=== PATIENT | male | born 1945 | race Caucasian/White ===

== ENCOUNTER 2022-06-03 10:13 | Observation (INO) | payer OTHER ==
--- OUTSIDE RECORDS SUMMARY | 2022-06-03 10:23 | XMS REPORT | Continuity of Care Document ---
:1945 Author Organization [facility] t Address [address] [place] [address] Care Team Providers Name Role Phone Dario Wade MD Primary Care Physician Barak Ibarra MD Attending Clinician Marietta Rahman MD Attending Clinician Chilo Casey MD Attending Clinician Jose Jennings MD Attending Clinician [phone] Anjel Otoole Attending Clinician Unavailable Lee Saldaña Attending Clinician Unavailable MONICA VALENTINE Attending Clinician Unavailable Lissette Ashford Attending Clinician Chepe Hooker Attending Clinician JOSE UREÑA, PShonda Attending Clinician Unavailable Siddhartha Anne Attending Clinician MARIETTA RAHMAN Admitting Clinician Unavailable Physician, No Primary or Family Admitting Clinician UnavailChepe Gutiérrez Admitting Clinician Siddhartha Anne Admitting Clinician Payers Payer Name Policy Type Policy Number Effective Date Expiration Date S ource Problems Condition Condition Condition Status Onset Resolution Last Treating Co mments Source Name Details Category Date Date Treatment Clinician Date Intractabl Intractabl Disease Active M ethodi e headache e headache -13 [facility] 00:00: Hospita 00 l PERIPHERAL PERIPHERA Diagnosis Active 2015-082016-08-28 Memoria VASCULAR L VASCULAR 09-11 07:19:00 l DISEASE, DISEASE, 00:00: Mansoor n Active 07/12/2016 [facility] PERIPHERAL Diagnosis Active 2015-082016-06-27 Memoria ARTERIAL PERIPHERAL 08-27 11:45:00 l DISEASE ARTERIAL 00:00: Wei DISEASE 00 Active 06/27/2016 [facility] KNEE KNEE Diagnosis Active 2016-10-31 Mem oria OSTEOARTHR OSTEOARTHR 02-14 18:57:00 l ITIS ITIS 00:00: Wei Active 02/15/2016 [facility] History of History of Problem Resolve [place] backache backache d Physic i ans History of History of Problem Resolve [place] blood blood d Physici clots clots ans History of History of Problem Resolve [place] CAD CAD d Physici (coronary (coronary ans artery artery disease) disease) Cardiac Cardiac Problem Active 2016-08-31 Oh moria monitoring monitoring 01:39:15 l (regime/th (regime/th He [facility] erapy) erapy) Active Problem 08/31/2016 implanted loop monitor [facility] [place] Gastroesop Gastroeso Problem Active 2016-08-31 Memoria hageal phageal 01:39:15 l reflux reflux Wei disease disease (disorder) (disorder) Active Problem 08/31/2016 [facility] [place] Hypertensi Hypertens Problem Active 2016-08-31 Memoria ve vic 01:39:15 l disorder, disorder, Herm errol systemic systemic arterial arterial (disorder) (disorder) Active Problem 08/31/2016 [facility] [place] Malignant Malignant Problem Active 2016-08-31 Memoria melanoma melanoma 01:39:15 l (disorder) (disorder) He rmann Active Problem 08/31/2016 [facility] [place] Osteoarthr Osteoarth Problem Active 2016-08-31 Memoria itis ritis 01:39:15 l (disorder) (disorder) He rmann Active Problem 08/31/2016 [facility] Outpatient Imaging [facility] Pulmonary Pulmonary Problem Active 2016-08-31 Memoria embolism embolism 01:39:15 l (disorder) (disorder) He rmann Active Problem 08/31/2016 4ys ago after being off warfarin for 1yr. [facility] Outpatient Imaging [facility] Sleep Sleep Problem Active 2016-08-31 Memor ia apnea apnea 01:39:15 l (finding) (finding) Herm errol Active Problem 08/31/2016 [facility] Outpatient Imaging [facility] OSTEOARTHR OSTEOARTH Diagnosis Active 2016-10-31 Memoria ITIS OF RITIS OF 18:57:00 l KNEE, KNEE, Wei UNSPECIFIE UNSPECIFIE D D Active [facility] PERIPHERAL PERIPHERA Diagnosis Active 2016-08-28 Memoria VASCULAR L VASCULAR 07:19:00 l DISEASE, DISEASE, Mansoor n UNSPECIFIE UNSPECIFIE D D Active [facility] Amnesia Amnesia Problem Resolve 2016-08-31 M emoria (finding) (finding) d 01:39:15 l Resolved Wei Problem 08/31/2016 episode of memory loss 1yr ago, saw neurologis t and all tests were normal. He has follow up on 03-27-16. [facility] History of History of Problem Resolve UT Extremity Extremity d Phys ici pain pain ans History of History of Problem Resolve UT Heart Heart d Physici valve valve ans malfunctio malfunctio n n History of History of Problem Resolve UT High High d Physici cholestero cholestero an s l l History of History of Problem Resolve UT hypertensi hypertensi d Ph ysici on on ans History of History of Problem Resolve UT Leg Leg d Physici swelling swelling ans History of History of Problem Resolve UT shortness shortness d Phys ici of breath of breath ans Atheroscle Atheroscle Problem Active U T rosis of rosis of Physic i [place] ans artery of artery of other other extremity extremity with rest with rest pain pain Aortobifem Aortobifem Problem Active U T oral oral Physici bypass bypass ans graft graft thrombosis thrombosis PAD PAD Problem Active UT (periphera (periphera Ph ysici l artery l artery ans disease) disease) Allergies, Adverse Reactions, Alerts Allergy Allergy Status Severity Reaction(s) Onset Inactive Treating Comm ents Source Name Type Date Date Clinician No Known DA Active U 2020- [facility] [place] 00[facility] 00 [facility] No Known DA Active U 2020-1 [facility] All[facility]ie 0-22 [place] 00:[place] [facility] 00 [facility] No Known DA Active U 2020-0 [facility]ie 8-12 [place] 00:[place]: Region [facility] No Known DA Active U 2020-0 [facility] Allergie 8-12 [place] 00:[facility] [facility] 00 [facility] Family History Family Member Diagnosis Comments Start Date Stop Date Source Natural father No Known Problems Met [facility] Natural mother Heart disease [facility] Social History Social Habit Start Date Stop Date Quantity Comments Source Alcohol Comment 2021-11-23 2021-11-23 minimal Confucianist 00:00:00 00:00:00 Hospital Alcohol intake 2021-11-23 2021-11-23 Current drinker [facility] 00:00:00 00:00:00 of alcohol Hospital (finding) Tobacco use and 2020-03-22 2020-03-22 Smokeless tobacco Me thodist exposure 00:00:00 00:00:00 non-user Hospital Social History 2016-03-14 2016-03-14 [facility] 23:29:25 23:29:25 History of 2003-03-[address] [facility] tobacco use 00:00:00 [facility] Sex Ass[birth year] At [birth year] Confucianist 00:00:00 00:00:00 Hospital Smoking Status Start Date Stop Date Source Ex-smoker 2020-03-22 00:00:00 2020-03-22 [facility]00:[facility]ations Ordered Filled Start Stop Current Ordering Indication Dosage Frequency Signature Comments Components Source Medication Medication Date Date Medication? Clinician (SIG) Name Name rosuvastati Yes 20mg QD Take 20 mg Methodi n (CRESTOR) 4-[address] 20 mg 16:18: daily. Hospita tablet 05 l sucralfate Yes 1g Q.25D Take 1 g Me thodi (CARAFATE) 4-[address] 1 gram 16:18: (four) Hospita tablet 05 times a l day. aspirin 2022-0 Yes 81mg QD Take 81 mg Meth josesito (ECOTRIN) 4-[address] 81 MG 16:19: daily. Hospita enteric 01 l coated tablet Xarelto 20 Yes 20mg QD Take 20 mg M ethodi mg tablet 3-[address] 00:00: daily. Hospita 00 l aspirin 2020-0 Yes 81mg QD Take 81 mg Meth josesito (ECOTRIN) 8-[address] 81 MG 15:45: daily. Hospita enteric 35 l coated tablet predniSONE 2020-0 Yes Methodi (DELTASONE) 8-05 st 20 mg 00:00: Hospita tablet 00 l predniSONE 2020-0 Yes Methodi (DELTASONE) 8-05 st 20 mg 00:00: Hospita tablet 00 l atorvastati 2019-0 Yes Method i n (LIPITOR) 7 st 20 mg 00:00: Hospita tablet 00 l metoprolol 2020-0 Yes Methodi succinate 03-04 st XL 00:00: Hospita (TOPROL-XL) 00 l 25 mg 24 hr tablet metoprolol 0 Yes Methodi succinate 03-04 st XL 00:00: Hospita (TOPROL-XL) 00 l 25 mg 24 hr tablet atorvastati 2019-0 2021- No Metho di n (LIPITOR) 03-04 04-13 st 20 mg 00:00: 00:00 Hospita tablet 00 :00 l traMADoL 2020-0 Yes Methodi (ULTRAM) 50 5-11 st mg tablet 00:00: Hospita 00 l traMADoL 2020-0 Yes Methodi (ULTRAM) 50 5-11 st mg tablet 00:00: Hospita 00 l chlorhexidi No Notes: Dustin lele ne 18 (Same As: l gluconate 15:00: Hibiclens) He rmann 40 MG/ML Medicated Liquid Soap chlorhexidi No Notes: Dustin lele ne -18 (Same As: l gluconate 15:00: Hibiclens) He rmann 40 MG/ML Medicated Liquid Soap metoprolol No 25 mg, Memor ia tartrate 08-29 Route: PO, l 15:00: Drug form: Wei 00 TAB, Daily, Dosing Weight 76.818, kg, Start date: 08/29/16 9:00:00 YARD DRIVER, Duration: 30 day, Stop date: 09/27/16 9:00:00 YARD DRIVER Lovenox 2016-0 No 80 mg, Memoria 08-29 Route: l 15:00: SUB-Q, Wei 00 Drug form: INJ, [id number], Dosing Weight 76.818, kg, Start date: 08/29/16 9:00:00 YARD DRIVER, Duration: 30 day, Stop date: 09/27/16 21:00:00 YARD DRIVER Vitamin B12 2016-0 No 250 Memori a 1-17 microgram, l 15:00: Route: PO, Mobile 00 Drug form: TAB, Daily, Dosing Weight 76.818, kg, Start date: 08/29/16 9:00:00 YARD DRIVER, Duration: 30 day, Stop date: 09/27/16 9:00:00 YARD DRIVER Warfarin 2016-0 No 5 mg, Memoria 08-29 Route: PO, l 15:00: Drug form: Mobile TAB, Daily, Dosing Weight 76.818, kg, Start date: 08/29/16 9:00:00 YARD DRIVER, Duration: 30 day, Stop date: 09/27/16 9:00:00 YARD DRIVER multivitami 2016-0 No Notes: Dustin lele n 17 (Same l 15:00: as:Thera) WASTE: F/P - Black; E - Municipal Trash Bin Take with food. aspirin 81 2017-0 No 81 mg, 1 Mem oria mg tablet, 17 tab, l enteric 15:00: Route: PO, Herm errol coated Drug form: ECTAB, Daily, Dosing Weight 76.818, kg, Start date: 08/29/16 9:00:00 YARD DRIVER, Duration: 30 day, Stop date: 09/27/16 9:00:00 YARD DRIVER metoprolol 2016-0 No 25 mg, Memor ia tartrate 08-29 Route: PO, l 15:00: Drug form: Mobile 00 TAB, Daily, Dosing Weight 76.818, kg, Start date: 08/29/16 9:00:00 YARD DRIVER, Duration: 30 day, Stop date: 09/27/16 9:00:00 YARD DRIVER Lovenox 2017-0 No 80 mg, Memoria 08-29 Route: l 15:00: SUB-Q, Wei 00 Drug form: INJ, [id number], Dosing Weight 76.818, kg, Start date: 08/29/16 9:00:00 YARD DRIVER, Duration: 30 day, Stop date: 09/27/16 21:00:00 YARD DRIVER Vitamin B12 2017-0 No 250 Memori a 1-17 microgram, l 15:00: Route: PO, Wei 00 Drug form: TAB, Daily, Dosing Weight 76.818, kg, Start date: 08/29/16 9:00:00 YARD DRIVER, Duration: 30 day, Stop date: 09/27/16 9:00:00 YARD DRIVER Warfarin 2017-0 No 5 mg, Memoria 1-17 Route: PO, l 15:00: Drug form: Wei 00 TAB, Daily, Dosing Weight 76.818, kg, Start date: 08/29/16 9:00:00 YARD DRIVER, Duration: 30 day, Stop date: 09/27/16 9:00:00 YARD DRIVER multivitami 2016-0 No Notes: Dustin lele n 1-17 (Same l 15:00: as:Thera) WASTE: F/P - Black; E - Municipal Trash Bin Take with food. aspirin 81 2017-0 No 81 mg, 1 Mem oria mg tablet, 1-17 tab, l enteric 15:00: Route: PO, Herm errol coated 00 Drug form: ECTAB, Daily, Dosing Weight 76.818, kg, Start date: 08/29/16 9:00:00 YARD DRIVER, Duration: 30 day, Stop date: 09/27/16 9:00:00 YARD DRIVER gabapentin 2017-0 No 300 mg, 1 Me moria 300 MG Oral 1-16 cap, l Capsule 19:00: Route: PO, Herm errol Drug form: CAP, TID, Dosing Weight 76.818, kg, Start date: 08/28/16 13:00:00 YARD DRIVER, Duration: 30 day, Stop date: 09/27/16 9:00:00 YARD DRIVER gabapentin 2017-0 No 300 mg, 1 Me moria 300 MG Oral 1-16 cap, l Capsule 19:00: Route: PO, Herm errol Drug form: CAP, TID, Dosing Weight 76.818, kg, Start date: 08/28/16 13:00:00 YARD DRIVER, Duration: 30 day, Stop date: 09/27/16 9:00:00 YARD DRIVER Famotidine No 20 mg, Memor ia 1-16 Route: PO, l 16:33: Drug form: Mobile 00 TAB, PRN, Dosing Weight 76.818, kg, PRN, Start date: 08/28/16 10:33:00 YARD DRIVER, Duration: 30 day, Stop date: 09/27/16 10:32:00 YARD DRIVER, none 200 ACTUAT 2017-0 No 180 Memoria Albuterol 1-16 microgram, l 0.09 16:33: 2 puff, Mobile MG/ACTUAT 00 Route: Metered INHALATION Dose , Drug Inhaler Form: AERO/A, Dosing Weight 76.818, kg, PRN, PRN as needed for wheezing, Start date: 08/28/16 10:33:00 YARD DRIVER, Duration: 30 day, Stop date: 09/27/16 10:32:00 YARD DRIVER Famotidine No 20 mg, Memor ia 1-16 Route: PO, l 16:33: Drug form: Mobile 00 TAB, PRN, Dosing Weight 76.818, kg, PRN, Start date: 08/28/16 10:33:00 YARD DRIVER, Duration: 30 day, Stop date: 09/27/16 10:32:00 YARD DRIVER, none 200 ACTUAT [id number] No 180 Memoria Albuterol 1-16 microgram, l 0.09 16:33: 2 puff, Mobile MG/ACTUAT 00 Route: Metered INHALATION Dose , Drug Inhaler Form: AERO/A, Dosing Weight 76.818, kg, PRN, PRN as needed for wheezing, Start date: 08/28/16 10:33:00 YARD DRIVER, Duration: 30 day, Stop date: 09/27/16 10:32:00 YARD DRIVER Morphine No Notes: Memoria -16 (Same l 16:30: as:MORPhin Mobile 00 e Sulfate) Acetaminoph No Notes: Dustin lele en 325 MG / -16 (Same as: l Hydrocodone 16:30: [place] Tierney nn Bitartrate 00 325/5) Do 5 MG Oral not exceed Tablet 4gm/day of acetaminop hen. Ondansetron No Notes: Dustin lele 1-16 (Same as: l 16:30: Zofran) Mobile 00 MEDICATION WASTE Product Size: 4 mg Product Wasted: ___ mg Docusate No Notes: Memoria 1-16 (Same as: l 16:30: Colace) Mobile 00 (Do Not Crush) Morphine No Notes: Memoria 1-16 (Same l 16:30: as:MORPhin Mobile 00 e Sulfate) Acetaminoph No Notes: Dustin lele en 325 MG / 08-28 (Same as: l Hydrocodone 16:30: [place] Tierney nn Bitartrate 00 325/5) Do 5 MG Oral not exceed Tablet 4gm/day of acetaminop hen. Ondansetron No Notes: Dustin lele 1-16 (Same as: l 16:30: Zofran) Wei 00 MEDICATION WASTE Product Size: 4 mg Product Wasted: ___ mg Docusate No Notes: Memoria 1-16 (Same as: l 16:30: Colace) Mobile 00 (Do Not Crush) Ondansetron No Notes: Dustin lele 1-16 (Same as: l 15:29: Zofran) Mobile 00 MEDICATION WASTE Product Size: 4 mg Product Wasted: ___ mg Fentanyl No Notes: Memoria 1-16 (Same as: l 15:29: Sublimaze) Wei 00 Preservati ve free. Naloxone No Notes: Memoria 1-16 Same as l 15:29: Narcan Wei 00 Flumazenil No Notes: Memor ia 1-16 (Same as: l 15:29: Romazicon) Mobile Ondansetron No Notes: Dustin lele 1-16 (Same as: l 15:29: Zofran) Mobile 00 MEDICATION WASTE Product Size: 4 mg Product Wasted: ___ mg Fentanyl No Notes: Memoria 1-16 (Same as: l 15:29: Sublimaze) Mobile 00 Preservati ve free. Naloxone No Notes: Memoria 1-16 Same as l 15:29: Narcan Mobile 00 Flumazenil No Notes: Memor ia -16 (Same as: l 15:29: Romazicon) cephalexin 2016-0 Yes 500 mg = 1 M emoria 500 mg oral 1-16 cap, PO, l capsule 15:18: QID, 0 Refill(s) esmolol No Route: IV, Dustin lele (ANES) 08-28 Drug form: l 15:18: INJ, ONCE, Stop date: 08/28/16 9:18:00 YARD DRIVER cephalexin Yes 500 mg = 1 M emoria 500 mg oral -16 cap, PO, l capsule 15:18: QID, 0 Refill(s) esmolol No Route: IV, Dustin lele (ANES) 08-28 Drug form: l 15:18: INJ, ONCE, Stop date: 08/28/16 9:18:00 YARD DRIVER ceFAZolin 2016-0 No Route: IV, Me moria (ANES) 08-28 Drug form: l 15:13: INJ, ONCE, Stop date: 08/28/16 9:13:00 YARD DRIVER fentaNYL 2017-0 No Route: IV, Mem oria (ANES) 08-28 Drug form: l 15:13: INJ, ONCE, Stop date: 08/28/16 9:13:00 YARD DRIVER midazolam 2017-0 No Route: IV, Me moria (ANES) 16 Drug form: l 15:13: SOLN, Mobile 00 ONCE, Stop date: 08/28/16 9:13:00 YARD DRIVER ceFAZolin 2016-0 No Route: IV, Me moria (ANES) 16 Drug form: l 15:13: INJ, ONCE, Stop date: 08/28/16 9:13:00 YARD DRIVER fentaNYL 2017-0 No Route: IV, Mem oria (ANES) -16 Drug form: l 15:13: INJ, ONCE, Stop date: 08/28/16 9:13:00 YARD DRIVER midazolam 2017-0 No Route: IV, Me moria (ANES) 16 Drug form: l 15:13: SOLN, Mobile 00 ONCE, Stop date: 08/28/16 9:13:00 YARD DRIVER acetaminoph 2017-0 No Route: IV, Memoria en (ANES) 1-16 Drug form: l (ANES) 14:44: INJ, Start Tierney nn date: 08/28/16 8:44:00 YARD DRIVER, Stop date: 08/28/16 9:44:00 YARD DRIVER acetaminoph 2016-0 No Route: IV, Memoria en (ANES) 1-16 Drug form: l (ANES) 14:44: INJ, Start Tierney nn date: 08/28/16 8:44:00 YARD DRIVER, Stop date: 08/28/16 9:44:00 YARD DRIVER sodium 2017-0 No Route: IV, Memor ia chloride 1-16 Total l 0.9% 1000 14:37: Volume: Tierney nn ml INJ 00 1,000, (ANES) Start date: 08/28/16 8:37:00 YARD DRIVER, Stop date: 08/28/16 9:37:00 YARD DRIVER sodium 2017-0 No Route: IV, Memor ia chloride 1-16 Total l 0.9% 1000 14:37: Volume: Tierney nn ml INJ 00 1,000, (ANES) Start date: 08/28/16 8:37:00 YARD DRIVER, Stop date: 08/28/16 9:37:00 YARD DRIVER dexamethaso 2015-0 No Notes: Memoria ne 8-24 MEDICATION l 16:12: WASTE Mobile 00 Product Size: 10 mg Product Wasted: ___ mg dexamethaso 2015-0 No Notes: Memoria ne 8-24 MEDICATION l 16:12: WASTE Wei 00 Product Size: 10 mg Product Wasted: ___ mg Warfarin 2015-0 No Notes: Rosey 04-05 Nurse to l 14:30: ensure Mobile 00 documentat ion of patient education per anticoagul ation policy. Avoid large intake of vitamin-K containing foods diet. WASTE: F/P - P Waste Black; E - P Waste Black (Same As: Coumadin) Warfarin No Notes: Rosey 04-05 Nurse to l 14:30: ensure Wei 00 documentat ion of patient education per anticoagul ation policy. Avoid large intake of vitamin-K containing foods diet. WASTE: F/P - P Waste Black; E - P Waste Black (Same As: Coumadin) 24 HR No Notes: Memoria Metoprolol 8-24 (Same as: l Tartrate 25 14:00: Toprol XL) Wei MG Extended 00 Do Not Release Crush Tablet [Toprol] sennosides, No Notes: Dustin lele RESIDENTIAL 8-24 (Same as: l 14:00: Senokot) Mobile 00 POLYETHYLEN No Notes: Dustin lele E GLYCOL 8-24 Dissolve l 3350 14:00: in 8 oz of Mobile 00 water or juice. (Same as: Miralax) Enoxaparin No Notes: Memor ia 8-24 (Same as: l 14:00: Lovenox) Wei 00 24 HR No Notes: Memoria Metoprolol 8-24 (Same as: l Tartrate 25 14:00: Toprol XL) Mobile MG Extended 00 Do Not Release Crush Tablet [Toprol] sennosides, No Notes: Dustin lele RESIDENTIAL 8-24 (Same as: l 14:00: Senokot) Mobile 00 POLYETHYLEN No Notes: Dustin lele E GLYCOL 8-24 Dissolve l 3350 14:00: in 8 oz of Wei 00 water or juice. (Same as: Miralax) Enoxaparin No Notes: Memor ia 8-24 (Same as: l 14:00: Lovenox) Mobile 00 pantoprazol No Notes: Dustin lele e 8-24 Tablet l 13:00: should not Mobile 00 be chewed or crushed. (Same as: Protonix) pantoprazol No Notes: Dustin lele e 8-24 Tablet l 13:00: should not Wei 00 be chewed or crushed. (Same as: Protonix) Acetaminoph Yes 1-2 tab, Me moria en 325 MG / 8-24 PO, Q4-6H, l Hydrocodone 12:41: PRN Pain, H ermann Bitartrate 00 # 120 tab, 10 MG Oral 0 Tablet Refill(s) [[place] 10/325] Acetaminoph Yes 1-2 tab, Me moria en 325 MG / 8-24 PO, Q4-6H, l Hydrocodone 12:41: PRN Pain, H ermann Bitartrate 00 # 120 tab, 10 MG Oral 0 Tablet Refill(s) [[place] 10/325] 0.3 ML Yes 30 mg, Memoria Enoxaparin 8-24 SUB-Q, l sodium 100 12:35: Q12H, X 10 H ermann MG/ML day, # 20 Prefilled syr, 0 Syringe Refill(s) [Lovenox] Phenergan Yes 12.5 mg = Mem oria 12.5 mg 8-24 1 tab, PO, l oral tablet 12:35: Q4H, PRN He rmann 00 Nausea & Vomiting, # 40 tab, 0 Refill(s) gabapentin Yes 300 mg = 1 M emoria 300 MG Oral 8-24 cap, PO, l Capsule 12:35: TID, Day Mansoor n 00 1: 1 cap daily; Day 2: 1 cap BID, Day 3 and later: 1 cap TID, # 42 cap, 0 Refill(s) 0.3 ML Yes 30 mg, Memoria Enoxaparin 8-24 SUB-Q, l sodium 100 12:35: Q12H, X 10 H ermann MG/ML day, # 20 Prefilled syr, 0 Syringe Refill(s) [Lovenox] Phenergan Yes 12.5 mg = Mem oria 12.5 mg 8-24 1 tab, PO, l oral tablet 12:35: Q4H, PRN He rmann Nausea & Vomiting, # 40 tab, 0 Refill(s) gabapentin Yes 300 mg = 1 M emoria 300 MG Oral 8-24 cap, PO, l Capsule 12:35: TID, Day Mansoor n 00 1: 1 cap daily; Day 2: 1 cap BID, Day 3 and later: 1 cap TID, # 42 cap, 0 Refill(s) Ondansetron No Notes: Dustin lele 8-24 (Same as: l 05:00: Zofran) MEDICATION WASTE Product Size: 4 mg Product Wasted: ___ mg Ondansetron No Notes: Dustin lele 8-24 (Same as: l 05:00: Zofran) Wei 00 MEDICATION WASTE Product Size: 4 mg Product Wasted: ___ mg Vancomycin No 2000 mg: Me moria 6.67 MG/ML 8-24 infuse l Injectable 02:00: over 2.5 Her high Solution 00 hours Mupirocin No 1 appl, Memor ia 8-24 Route: l 02:00: NASAL, Mobile 00 Q12H, Drug form: OINT, Start date: 04/04/16 21:00:00 CDT, Duration: 30 day, Stop date: 05/04/16 9:00:00 CDT Vancomycin No 2000 mg: Me moria 6.67 MG/ML 8-24 infuse l Injectable 02:00: over 2.5 Her high Solution 00 hours Mupirocin No 1 appl, Memor ia 8-24 Route: l 02:00: NASAL, Mobile 00 Q12H, Drug form: OINT, Start date: 04/04/16 21:00:00 CDT, Duration: 30 day, Stop date: 05/04/16 9:00:00 CDT Celebrex No Notes: Memoria 8-23 NSAID. l 22:00: Please Wei 00 check indication . Not for seizure. (Same As: CeleBREX) Docusate No Notes: Memoria Sodium 100 8-23 (Same as: l MG Oral 22:00: Colace) Mobile Capsule 00 (Do Not Crush) Celebrex No Notes: Memoria 8-23 NSAID. l 22:00: Please Mobile 00 check indication . Not for seizure. (Same As: CeleBREX) Docusate No Notes: Memoria Sodium 100 8-23 (Same as: l MG Oral 22:00: Colace) Mobile Capsule 00 (Do Not Crush) Lyrica No Notes: Memoria 8-23 Same as l 21:00: Lyrica Mobile 00 Lyrica No Notes: Memoria 8-23 Same as l 21:00: Lyrica Mobile 00 ceFAZolin + No Notes: Dustin lele sodium 8-23 (Same As: l chloride 19:00: Ancef, Wei 0.9% INJ 00 Kefzol) 100 mL MEDICATION WASTE Product Size: 1000 mg Product Wasted: ___ mg ceFAZolin + No Notes: Dustin lele sodium 8-23 (Same As: l chloride 19:00: Ancef, Mobile 0.9% INJ 00 Kefzol) 100 mL MEDICATION WASTE Product Size: 1000 mg Product Wasted: ___ mg 200 ACTUAT No Notes: Memor ia Albuterol 8-23 Albuterol l 0.09 17:53: 90 Mobile MG/ACTUAT 00 microgram/ Metered inh 8gm Dose HFA WASTE: Inhaler Aerosol - Return to Pharmacy Same as: Ene Travistil 200 ACTUAT No Notes: Memor ia Albuterol 8-23 Albuterol l 0.09 17:53: 90 Wei MG/ACTUAT 00 microgram/ Metered inh 8gm Dose HFA WASTE: Inhaler Aerosol - Return to Pharmacy Same as: Angy Proventil Diphenhydra No Notes: Dustin lele mine - (Same as: l 16:03: Benadryl) Wei 00 Tylenol No Notes: Do Memor ia 8-23 not exceed l 16:03: 4 gm/day. Wei 00 (Same as: Tylenol) 30 ML No Notes: Memoria Morphine 8-23 (Same l Sulfate 5 16:03: as:MORPhin He rmann MG/ML 00 e Sulfate) Injection cefepime No /= 50 Memoria 8-23 ml/min) l 16:03: Infuse Wei 00 over 30 minutes. Administer 12 hours after initial pre op dose., Start date: 04/04/16 11:03:00 CDT, Stop date: 04/04/16 11:03:00 CDT Promethazin No Notes: Dustin lele e 8-23 (Same as: l 16:03: Phenergan) Mobile 00 Methocarbam No Notes: Dustin lele ol 8-23 (Same l 16:03: as:Robaxin Mobile ) Melatonin No Notes: Memori a 8-23 (Same as: l 16:03: Melatonin) Mobile 00 Acetaminoph No 100.4 F, M emoria en - Start l 16:03: date: Wei 00 04/04/16 11:03:00 CDT, Duration: 30 day, Stop date: 05/04/16 11:02:00 CDT Tramadol No Notes: Not Mem oria 04-04 to exceed l 16:03: 400mg/day. Mobile (Same As: Ultram) Oxycodone No Notes: Memori a Hydrochlori 04-04 (Same as: l de 5 MG 16:03: Roxicodone Herm errol Oral Tablet ) Dexamethaso No Notes: Memoria ne 04-04 MEDICATION l 16:03: WASTE Wei 00 Product Size: 10 mg Product Wasted: ___ mg Milk of No Notes: Memoria Magnesia 04-04 (Same as: l 16:03: Milk of Magnesia, MOM) Acetaminoph No Notes: Do M emoria en 325 MG / 04-04 not exceed l Hydrocodone 16:03: 4gm/day of Wei Bitartrate 00 acetaminop 10 MG Oral hen. (Same Tablet as: [place] [[place] 325/10) 10/325] Lactated No 1,000 mL, Dustin lele Ringers 04-04 Rate: 75 l 1,000 mL 16:03: ml/hr, Infuse over: 13.3 hr, Route: IV, Dosing Weight 76.818 kg, Total Volume: 1,000, Start date: 04/04/16 11:03:00 CDT, Duration: 30 day, Stop date: 05/04/16 11:02:00 CDT Diphenhydra No Notes: Dustin lele mine 04-04 (Same as: l 16:03: Benadryl) Tylenol No Notes: Do Memor ia 04-04 not exceed l 16:03: 4 gm/day. Wei (Same as: Tylenol) 30 ML No Notes: Memoria Morphine 04-04 (Same l Sulfate 5 16:03: as:MORPhin He rmann MG/ML 00 e Sulfate) Injection cefepime No /= 50 Memoria 04-04 ml/min) l 16:03: Infuse Wei 00 over 30 minutes. Administer 12 hours after initial pre op dose., Start date: 04/04/16 11:03:00 CDT, Stop date: 04/04/16 11:03:00 CDT Promethazin No Notes: Dustin lele e 04-04 (Same as: l 16:03: Phenergan) Wei Methocarbam No Notes: Dustin lele ol 04-04 (Same l 16:03: as:Robaxin Mobile ) Melatonin No Notes: Memori a 04-04 (Same as: l 16:03: Melatonin) Mobile 00 Acetaminoph No 100.4 F, M emoria en 04-04 Start l 16:03: date: Mobile 04/04/16 11:03:00 CDT, Duration: 30 day, Stop date: 05/04/16 11:02:00 CDT Tramadol No Notes: Not Mem oria 04-04 to exceed l 16:03: 400mg/day. Mobile (Same As: Ultram) Oxycodone No Notes: Memori a Hydrochlori 04-04 (Same as: l de 5 MG 16:03: Roxicodone Herm errol Oral Tablet ) Dexamethaso No Notes: Memoria ne 04-04 MEDICATION l 16:03: WASTE Mobile Product Size: 10 mg Product Wasted: ___ mg Milk of No Notes: Memoria Magnesia 04-04 (Same as: l 16:03: Milk of Mobile 00 Magnesia, MOM) Acetaminoph No Notes: Do M emoria en 325 MG / 04-04 not exceed l Hydrocodone 16:03: 4gm/day of Mobile Bitartrate 00 acetaminop 10 MG Oral hen. (Same Tablet as: [place] [[place] 325/10) 10/325] Lactated No 1,000 mL, Dustin lele Ringers 04-04 Rate: 75 l 1,000 mL 16:03: ml/hr, Wei 00 Infuse over: 13.3 hr, Route: IV, Dosing Weight 76.818 kg, Total Volume: 1,000, Start date: 04/04/16 11:03:00 CDT, Duration: 30 day, Stop date: 05/04/16 11:02:00 CDT 200 ACTUAT 2015- Yes 2 puff, Dustin lele Albuterol 8-23 INHALATION l 0.09 14:37: , PRN, 0 Wei MG/ACTUAT 00 Refill(s) Metered Dose Inhaler 200 ACTUAT 2015-0 Yes 2 puff, Dustin lele Albuterol 8-23 INHALATION l 0.09 14:37: , PRN, 0 Wei MG/ACTUAT 00 Refill(s) Metered Dose Inhaler Naloxone No Notes: Memoria 8-23 Same as l 13:56: Narcan Meperidine No Notes: Memor ia 8-23 (Same as: l 13:56: Demerol) "Use Precaution in Elderly, Seizure disorders, and Renal impairment " Flumazenil No Notes: Memor ia 8-23 (Same as: l 13:56: Romazicon) Ondansetron No Notes: Dustin lele 8-23 (Same as: l 13:56: Zofran) Wei 00 MEDICATION WASTE Product Size: 4 mg Product Wasted: ___ mg Hydromorpho No Notes: Dustin lele ne 8-23 Same as l 13:56: Dilaudid Naloxone No Notes: Memoria 8-23 Same as l 13:56: Narcan Meperidine No Notes: Memor ia 8-23 (Same as: l 13:56: Demerol) "Use Precaution in Elderly, Seizure disorders, and Renal impairment " Flumazenil No Notes: Memor ia 8-23 (Same as: l 13:56: Romazicon) Ondansetron No Notes: Dustin lele 8-23 (Same as: l 13:56: Zofran) Wei 00 MEDICATION WASTE Product Size: 4 mg Product Wasted: ___ mg Hydromorpho No Notes: Dustin lele ne 8- Same as l 13:56: Dilaudid metoprolol No 25 mg, Memor ia tartrate 04-04 Route: PO, l 13:04: Drug form: Mobile 00 TAB, ONCE, Dosing Weight 76.818, kg, Start date: 04/04/16 8:04:00 CDT, Stop date: 04/04/16 8:04:00 CDT metoprolol No 25 mg, Memor ia tartrate 04-04 Route: PO, l 13:04: Drug form: Wei 00 TAB, ONCE, Dosing Weight 76.818, kg, Start date: 04/04/16 8:04:00 CDT, Stop date: 04/04/16 8:04:00 CDT Ancef No Notes: Memoria 8-23 Same as l 13:00: Ancef Wei 00 vancomycin No Notes: Memor ia + sodium 8-23 TIME l chloride 13:00: CRITICAL Tierney nn 0.9% INJ 00 MEDICATION 250 mL (Same As: Vancocin) polymyxin B No Notes: Dustin lele sulfate + 8-23 (Same as: l sodium 13:00: Polymyxin Mansoor n chloride 00 B Sulfate) 0.9% INJ 250 mL Ancef No Notes: Memoria 8-23 Same as l 13:00: Ancef Mobile 00 vancomycin No Notes: Memor ia + sodium 8-23 TIME l chloride 13:00: CRITICAL Tierney nn 0.9% INJ 00 MEDICATION 250 mL (Same As: Vancocin) polymyxin B No Notes: Dustin lele sulfate + 8-23 (Same as: l sodium 13:00: Polymyxin Mansoor n chloride 00 B Sulfate) 0.9% INJ 250 mL celecoxib No Notes: Memori a 8-23 NSAID. l 12:00: Please Mobile 00 check indication . Not for seizure. (Same As: CeleBREX) celecoxib No Notes: Memori a 8-23 NSAID. l 12:00: Please Mobile 00 check indication . Not for seizure. (Same As: CeleBREX) cefepime No /= 50 Memoria 8-23 ml/min) l 11:56: Infuse Mobile 00 over 30 minutes. Administer within 2 hours prior to skin incision., Start date: 04/04/16 6:56:00 CDT, Stop date: 04/04/16 6:56:00 CDT Famotidine No Notes: Memor ia 04-04 (Same as: l 11:56: Pepcid) Wei 00 Acetaminoph No Notes: Max Memoria en 04-04 acetaminop l 11:56: hen 4000 Wei 00 mg/day (4 gm/day). (Same as: Tylenol Extra Strength) Promethazin No Notes: Dustin lele e 04-04 (Same as: l 11:56: Phenergan) Mobile Diphenhydra No Notes: Dustin lele mine 04-04 (Same as: l 11:56: Benadryl) Mobile Acetaminoph No Notes: Do M emoria en 325 MG / 04-04 not exceed l Hydrocodone 11:56: 4gm/day of Wei Bitartrate 00 acetaminop 10 MG Oral hen. (Same Tablet as: [place] [[place] 325/10) 10/325] Mupirocin Yes 1 appl, Memor ia 04-04 Route: l 11:56: NASAL, Wei 00 ONCE, Drug form: OINT, To prevent MRSA. Only if patient did not complete at home., Start date: 04/04/16 6:56:00 CDT, Stop date: 04/04/16 6:56:00 CDT Calcium No 1,000 mL, Memor ia Chloride 04-04 1,000 l 0.0014 11:56: ml/hr, Wei MEQ/ML / 00 Infuse Potassium Over: 1 Chloride hr, Route: 0.004 IV, 1,000, MEQ/ML / Drug form: Sodium INJ, ONCE, Chloride Priority: 0.103 STAT, MEQ/ML / Dosing Sodium Weight Lactate 77.273 kg, 0.028 Start MEQ/ML date: Injectable 04/04/16 Solution 6:56:00 CDT, Duration: 1 doses or times, Stop date: 04/04/16 6:56:00 CDT Vancomycin No 2001 mg: Me moria 8-23 infuse l 11:56: over 2.5 Mobile 00 hours cefepime No /= 50 Memoria 8-23 ml/min) l 11:56: Infuse Wei 00 over 30 minutes. Administer within 2 hours prior to skin incision., Start date: 04/04/16 6:56:00 CDT, Stop date: 04/04/16 6:56:00 CDT Famotidine No Notes: Memor ia 04-04 (Same as: l 11:56: Pepcid) Wei Acetaminoph No Notes: Max Memoria en 04-04 acetaminop l 11:56: hen 4000 Mobile 00 mg/day (4 gm/day). (Same as: Tylenol Extra Strength) Promethazin No Notes: Dustin lele e 04-04 (Same as: l 11:56: Phenergan) Mobile 00 Lactated No 1,000 mL, Dustin lele Ringers 8-23 Rate: 100 l 1,000 mL 11:56: ml/hr, Wei 00 Infuse over: 10 hr, Route: IV, Dosing Weight 77.273 kg, Total Volume: 1,000, Start date: 04/04/16 6:56:00 CDT, Duration: 30 day, Stop date: 05/04/16 6:55:00 CDT Lactated No 1,000 mL, Dustin lele Ringers 8-23 Rate: 100 l 1,000 mL 11:56: ml/hr, Mobile 00 Infuse over: 10 hr, Route: IV, Dosing Weight 77.273 kg, Total Volume: 1,000, Start date: 04/04/16 6:56:00 CDT, Duration: 30 day, Stop date: 05/04/16 6:55:00 CDT Diphenhydra No Notes: Dustin lele mine 04-04 (Same as: l 11:56: Benadryl) Wei Acetaminoph No Notes: Do M emoria en 325 MG / 04-04 not exceed l Hydrocodone 11:56: 4gm/day of Mobile Bitartrate 00 acetaminop 10 MG Oral hen. (Same Tablet as: [place] [[place] 325/10) ] Mupirocin Yes 1 appl, Memor ia 04-04 Route: l 11:56: NASAL, Mobile 00 ONCE, Drug form: OINT, To prevent MRSA. Only if patient did not complete at home., Start date: 04/04/16 6:56:00 CDT, Stop date: 04/04/16 6:56:00 CDT Calcium No 1,000 mL, Memor ia Chloride 04-04 1,000 l 0.0014 11:56: ml/hr, Mobile MEQ/ML / 00 Infuse Potassium Over: 1 Chloride hr, Route: 0.004 IV, 1,000, MEQ/ML / Drug form: Sodium INJ, ONCE, Chloride Priority: 0.103 STAT, MEQ/ML / Dosing Sodium Weight Lactate 77.273 kg, 0.028 Start MEQ/ML date: Injectable 04/04/16 Solution 6:56:00 CDT, Duration: 1 doses or times, Stop date: 04/04/16 6:56:00 CDT Vancomycin No 2000 mg: Me moria 04-04 infuse l 11:56: over 2.5 Mobile 00 hours ropivacaine No Notes: Memoria 04-04 NOT FOR IV l 05:00: use Mobile 00 Ropivacain e 5 mg/mL (49.25 mL) Epinephrin e 1 mg/mL (0.5 mL) Clonidine 0.1 mg/mL (0.8 mL) Ketorolac 30 mg/mL (1 mL) Normal Saline 48.45 mL ropivacaine No Notes: Memoria - NOT FOR IV l 05:00: use Wei 00 Ropivacain e 5 mg/mL (49.25 mL) Epinephrin e 1 mg/mL (0.5 mL) Clonidine 0.1 mg/mL (0.8 mL) Ketorolac 30 mg/mL (1 mL) Normal Saline 48.45 mL Vitamin B12 Yes 1,000 Memor ia 1000 mcg 8-02 microgram l oral tablet 23:09: = 1 tab, He rmann 00 PO, Daily, # 30 tab, 0 Refill(s) CoQ10 Yes 400 mg, Memoria 8-02 PO, Daily, l 23:09: 0 Wei 00 Refill(s) Vitamin B12 Yes 1,000 Memor ia 1000 mcg 8-02 microgram l oral tablet 23:09: = 1 tab, He rmann 00 PO, Daily, # 30 tab, 0 Refill(s) CoQ10 Yes 400 mg, Memoria 8-02 PO, Daily, l 23:09: 0 Wei 00 Refill(s) multivitami Yes 1 tab, PO, Memoria n 8-02 Daily, 0 l 23:08: Refill(s) Mobile Vitamin B12 Yes 250 Memori a 250 mcg 8-02 microgram l oral tablet 23:08: = 1 tab, He rmann 00 PO, Daily, # 30 tab, 0 Refill(s) multivitami Yes 1 tab, PO, Memoria n 8-02 Daily, 0 l 23:08: Refill(s) Mobile 00 Vitamin B12 Yes 250 Memori a 250 mcg 8-02 microgram l oral tablet 23:08: = 1 tab, He rmann 00 PO, Daily, # 30 tab, 0 Refill(s) warfarin 5 Yes 5 mg = 1 Mem oria mg oral 8-02 tab, PO, l tablet 23:07: Tierney nn 00 -Curiel, # 30 tab, 0 Refill(s) warfarin 5 Yes 5 mg = 1 Mem oria mg oral 8-02 tab, PO, l tablet 23:07: Tierney nn 00 -Curiel, # 30 tab, 0 Refill(s) warfarin 5 Yes 10 mg = 2 Me moria mg oral 8-02 tab, PO, l tablet 23:06: Q--W-, # Tierney nn 00 30 tab, 0 Refill(s) metoprolol Yes 25 mg = 1 Me moria tartrate 25 8-02 tab, PO, l mg oral 23:06: QAM, # 180 Herm errol tablet 00 tab, 0 Refill(s) Aspirin 81 Yes 81 mg = 1 Me moria MG Enteric 8-02 tab, PO, l Coated 23:06: Daily, # Mobile Tablet 00 90 tab, 3 Refill(s) warfarin 5 Yes 10 mg = 2 Me moria mg oral 8-02 tab, PO, l tablet 23:06: Q-M-W-F, # Tierney nn 00 30 tab, 0 Refill(s) metoprolol Yes 25 mg = 1 Me moria tartrate 25 8-02 tab, PO, l mg oral 23:06: QAM, # 180 Herm errol tablet 00 tab, 0 Refill(s) Aspirin 81 Yes 81 mg = 1 Me moria MG Enteric 8-02 tab, PO, l Coated 23:06: Daily, # Wei Tablet 00 90 tab, 3 Refill(s) Famotidine Yes 20 mg = 1 Me moria 20 MG Oral 8-02 tab, PO, l Tablet 23:05: PRN, # 180 Tierney nn [Pepcid] 00 tab, 0 Refill(s) Famotidine Yes 20 mg = 1 Me moria 20 MG Oral -02 tab, PO, l Tablet 23:05: PRN, # 180 Tierney nn [Pepcid] 00 tab, 0 Refill(s) Metoprolol Metoprolol Yes [facility] Tartrate 25 Tartrate 25 P hysici MG Oral MG Oral ans Tablet Tablet Warfarin Warfarin Yes UT Sodium 5 MG Sodium 5 MG P hysici Oral Tablet Oral Tablet a ns Aspirin 81 Aspirin 81 Yes UT MG TABS MG TABS Physici ans Immunizations Ordered Immunization Filled Immunization Date Status Commen ts Source Name Name [facility] COVID-19 [facility] 2021-05-12 Completed Meth odist VACCINATION 00:00:00 [facility] PFIZER COVID-19 MRNA 2021-05-12 Completed Meth odist VACCINATION 00:00:00 [facility] PFI[facility]ER COVID-19 MRNA 2020-10-25 Completed Meth odist VACCINATION 00:00:00 [facility] PFIZER COVID-19 MRNA 2020-10-25 Completed Meth odist VACCINATION 00:00:00 [facility] PFIZER COVID-19 MRNA 2020-10-04 Completed Meth odist VACCINATION 00:00:00 [facility] PFIZER COVID-19 MRNA 2020-10-04 Completed Meth odist VACCINATION 00:00:00 [facility] pneumococcal 2007-07-06 Completed [facility] high 23-valent vaccine 20:30:00 pneumococcal 2007-07-06 Completed [facility] high 23-valent vaccine 20:30:00 Vital Signs Vital Name Observation Time Observation Value Comments Source Systolic blood 2021-11-24 16:24:26 159 mm[Hg] [facility] pressure Diastolic blood 2021-11-24 16:24:26 72 mm[Hg] [facility] pressure Heart rate 2021-11-24 16:24:26 50 /min [facility] Body temperature 2021-11-24 16:24:26 36.11 Karyn [facility] Respiratory rate 2021-11-24 16:24:26 20 /min [facility] Oxygen saturation in 2021-11-24 16:24:26 96 /min [facility] Arterial blood by Pulse oximetry Body height 2021-11-23 18:15:00 172.7 cm [facility] Body weight 2021-11-23 18:15:00 79.379 kg [facility] BMI 2021-11-23 18:15:00 26.61 kg/m2 [facility] Systolic (mm Hg) 2016-08-28 22:00:00 Dustin rial Wei Diastolic (mm Hg) 2016-08-28 22:00:00 Mem orial Wei Respitory Rate 2016-08-28 22:00:00 Memori al Wei Systolic (mm Hg) 2016-08-28 21:30:00 Dustin rial Wei Diastolic (mm Hg) 2016-08-28 21:30:00 Mem orial Wei Respitory Rate 2016-08-28 21:30:00 Memori al Mobile Systolic (mm Hg) 2016-08-28 21:00:00 Dustin rial Mobile Diastolic (mm Hg) 2016-08-28 21:00:00 Mem orial Mobile Respitory Rate 2016-08-28 21:00:00 Memori al Wei Height 2016-08-28 15:19:00 172.72 cm Memorial Wei BMI Calculated 2016-08-28 15:19:00 Memori al Mobile Weight 2016-08-28 15:19:00 [facility] Wei Height 2016-06-27 17:56:00 172.72 cm Memorial Wei Weight 2016-06-27 17:56:00 Memorial Mobile BMI Calculated 2016-06-27 17:56:00 Memori al Mobile Respitory Rate 2016-04-05 12:35:00 Memori al Wei Temperature Oral (F) 2016-04-05 12:35:00 98.6 F Memorial Wei Systolic (mm Hg) 2016-04-05 12:35:00 Dustin rial Mobile Diastolic (mm Hg) 2016-04-05 12:35:00 Mem orial Wei Heart Rate 2016-04-05 12:35:00 Memorial Wei Temperature Oral (F) 2016-04-05 07:40:00 98.0 F Memorial Mobile Systolic (mm Hg) 2016-04-05 07:40:00 Dustin rial Wei Diastolic (mm Hg) 2016-04-05 07:40:00 Mem orial Mobile Respitory Rate 2016-04-05 07:40:00 Memori al Wei Heart Rate 2016-04-05 07:40:00 Memorial Mobile Systolic (mm Hg) 2016-04-05 05:00:00 Dustin rial Wei Diastolic (mm Hg) 2016-04-05 05:00:00 Mem orial Mobile Heart Rate 2016-04-05 05:00:00 Memorial Mobile Respitory Rate 2016-04-05 05:00:00 Memori al Wei Temperature Oral (F) 2016-04-05 05:00:00 97.9 F Memorial Wei Weight 2016-04-04 11:57:00 Memorial Wei BMI Calculated 2016-04-04 11:57:00 [facility] al Mobile Height 2016-03-14 23:15:00 172.72 [facility] Procedures Procedure Date / Time Performing Clinician Source Performed MRI BRAIN WO [facility]-11-24 [facility] 2021-11-24 08:48:00 [facility] BASIC METABOLIC PANEL 2021-11-24 08:48:00 [facility] LIPID PANEL 2021-11-24 08:48:00 [facility] HEMOGLOBIN A1C 2021-11-24 08:48:00 [facility] ESTIMATED GFR 2021-11-24 08:48:00 [facility] TROPONIN T 2021-11-24 [facility]14[facility] 2021-11-24 01:33:11 Traci Radha Magdalena [facility] COVID-19 QUALITATIVE 2021-11-23 23:55:00 [facility] RT-PCR TROPONIN T 2021-11-23 23:55[facility] VW PORTABLE 2021-11-23 19:31:45 [facility] TYPE AND SCREEN 2021-11-23 19:09:00 [facility] CT ANGIOGRAM NECK W WO 2021-11-23 19:00:38 [facility] CONTRAST ECG 12-LEAD 2021-11-23 19:00:26 [facility] CT ANGIOGRAM HEAD W WO 2021-11-23 18:59:36 [facility] CONTRAST CT STROKE BRAIN WO 2021-11-23 18:35:53 [facility] CONTRAST ECG ED PRELIMINARY 2021-11-23 18:26:34 [facility] INTERPRETATION HC COMPLETE BLD COUNT 2021-11-23 18:23:00 [facility] W/AUTO DIFF PARTIAL THROMBOPLASTIN 2021-11-23 18:23:00 [facility] TIME (PTT) PROTHROMBIN TIME WITH INR 2021-11-23 18:23:00 [facility] COMPREHENSIVE METABOLIC 2021-11-23 18:23:00 [facility] PANEL TROPONIN T 2021-11-23 18:23:00 [facility] ESTIMATED GFR 2021-11-23 18:23:00 [facility] POC GLUCOSE 2021-11-23 18:21:00 [facility] [id number] 2020-03-25 00:00:00 KIM.02 [facility] Stent placement 2015-01-11 00:00:00 [facility] History of Bypass Graft [facility] (Non-Vein) Femoral-femoral Angioplasty of abdominal Memoria l Wei aorta<sup>1</sup> Cataract extraction and [facility] insertion of intraocular lens [facility] [place] Implantation of [facility] insertable loop recorder Knee joint [facility] operation<sup>2</sup> Rotator cuff repair [facility] Total knee replacement [facility] History of Total Knee [facility] Replacement History of Bypass Graft [facility] Using Vein: Aortic-Bifemoral History of Bypass Graft [facility] (Non-Vein) Aortic-bifemoral History of Bypass Graft [facility] (Non-vein) Femoral-popliteal Plan of Care Planned Activity Planned Date Details Comments Source Future Scheduled 2022-05-03 HEPATITIS B VACCINES [facility] Test 04:10:12 (1 of 3 - 3-dose series) [code = HEPATITIS B VACCINES (1 of 3 - 3-dose series)] Future Scheduled 2022-05-03 Hepatitis C screening [facility] Test 04:10:12 (procedure) [code = 446167941] Future Scheduled 2022-05-03 COLONOSCOPY SCREENING [facility] Test 04:10:12 [code = COLONOSCOPY SCREENING] Future Scheduled 2022-05-03 SHINGLES VACCINES (1 [facility] Test 04:10:12 of 2) [code = SHINGLES VACCINES (1 of 2)] Future Scheduled 2022-05-03 65+ [facility] 04:[facility]12 VACCINE (2 - PCV) [code = 65+ PNEUMOCOCCAL VACCINE (2 - PCV)] Future Scheduled 2022-05-03 COVID-19 VACCINE (4 - [facility] Test 04:10:12 Booster for Pfizer series) [code = COVID-19 VACCINE (4 - Booster for Pfizer series)] Future Scheduled 2022-05-03 INFLUENZA VACCINE [facility] Test 04:10:12 [code = INFLUENZA VACCINE] Future Scheduled 2021-09-13 Hepatitis C screening [facility] Test 05:36:29 (procedure) [code = 593801330] Future Scheduled 2021-09-13 COLONOSCOPY SCREENING [facility] Test 05:36:29 [code = COLONOSCOPY SCREENING] Future Scheduled 2021-09-13 SHINGLES VACCINES (#1) [facility] Test 05:36:29 [code = SHINGLES VACCINES (#1)] Future Scheduled 2021-09-13 [facility]ACCINE [facility] Test 05:36:29 [code = INFLUENZA VACCINE] Encounters Start End Encounter Admission Attending Care Care Encounter Source Date/Time Date/Time Type Type Clinicians Facility Department ID 2021-11-23 2021-11-24 Emergency Barak Ibarra 1.2.840.1 [id number] Methodi 13:27:00 16:18:00 Marietta Rahman 05417.1.[address] Chilo Casey 3.430.2.7 Hospita .3.367811 l .8 2021-11-23 2021-11-24 [id number] [place] 00:00:00 00:00:00 CHILO [address] 2021-05-12 2021-05-12 Clinical 1.2.840.1 [id number] [facility] 08:33:51 08:38:[address] 3.430.2.7 Hospit a .3.042038 l .8 2021-05-12 2021-05-12 Travel 1.2.840.1 1.2.363.023 [id number] Methodi 00:00:00 00:00:[address] 3.430.2.7 0.2.7.3.698 spita .3.754340 084.8 l .8 2020-10-25 2020-11-05 Clinical Michaela 1.2.840.1 [id number] Methodi 08:38:04 04:57:29 Support Jose 04867.1.[address] P. 3.430.2.7 Hospit a .3.370629 l .8 2020-10-04 2020-10-27 Clinical 1.2.840.1 [id number] Method[facility] 09:01:39 03:03:[address] 3.430.2.7 Hospit a .3.563849 l .8 2020-10-25 2020-10-25 Travel 1.2.840.1 1.2.128.206 [id number] Methodi 00:00:00 00:00:[address] 3.430.2.7 0.2.7.3.698 Ho spita .3.195586 084.8 l .8 2020-10-04 2020-10-04 Travel 1.2.840.1 1.2.574.374 [id number] Methodi 00:00:00 00:00:[address] 3.430.2.7 0.2.7.3.698 Ho spita .3.307670 084.8 l .8 2020-07-07 2020-07-07 Outpatient Sydnie [facility] [id number] 16:00:00 16:00:00 Anjel [id number] [facility] 2020-06-03 2020-06-05 Inpatient [facility] ANITHA [id number] [facility] 11:19:00 11:07:42 97 [facility] 2020-05-10 2020-05-10 Outpatient Piotr, [facility] CPUL [id number] [facility] 08:00:00 08:00:00 Lee 48 [facility] 2020-03-24 2020-04-09 Inpatient [facility] ANITHA [id number] [facility] 12:24:00 16:27:20 33 [facility] 2020-03-22 2020-03-22 Emergency ZEBALLOS, [facility] [id number] [place] 00:00:00 00:00:00 MONICA [address] 2016-08-28 2016-08-29 Day [facility] [id number] Memoria 13:11:00 05:59:[address] 2016-08-28 2016-08-29 Day [facility] [id number] Memoria 13:11:00 05:59:[address] 2016-08-28 2016-08-28 Outpatient Lissette Ashford [facility] [id number] 07:11:00 23:59:00 Saúl 01 2016-07-27 2016-07-28 Outpt Diag nullFlavo [facility] [id number] Memoria 15:18:00 05:59:00 Services r Outpatient 00 l Imaging [facility] 2016-07-27 2016-07-28 Outpt Diag nullFlavo [facility] [id number] Memoria 15:18:00 05:59:00 Services r Outpatient 00 l Imaging [facility] 2016-07-27 2016-07-27 Outpatient Lissette Ashford [place] [id number] 09:18:00 23:59:00 Saúl 2016-06-27 2016-06-28 Outpatient nullFlavo [place] [id number] Memoria 17:44:00 05:59:00 r Mobile 20 [facility] 2016-06-27 2016-06-[address] [facility] [id number] Memoria 17:44:00 05:59:00 r Mobile 20 [facility] 2016-06-27 2016-06-27 Outpatient Nhung [facility] [id number] 11:44:00 23:59:00 Kamal 20 2016-04-14 2016-04-14 Appointgurmeet [facility] [id number] [place] 10:45:00 10:45:00 tJOSE GARCIA [facility] 2016-04-04 2016-04-05 [facility] [id number] Memoria 10:22:00 15:35:00 r Wei 00 l [facility]opedic [facility] 2016-04-04 2016-04-05 [facility] [id number] Memoria 10:22:00 15:35:00 r Mobile 00 l [facility] 2016-04-04 2016-04-05 Outpatient FRANCO Anne [facility] [id number] 05:22:00 10:35:00 Siddhartha Monsalve Results Test Description Test Time Test Comments Results Result Comments Source ECG 12 lead 2021-11-29 11:22:20 Test Item Value Reference Range Interpretation Comme nts Ventricular rate (test code = 253) Atrial rate (test code = 255) [place] interval (test code = 266) QRSD interval (test code = 260) QT interval (test code = 264) QTC interval (test code = 265) P axis 1 (test code = 267) QRS axis 1 (test code = 268) T wave axis (test code = 270) EKG impression (test code = 273) Sinus rhythm premature atrial comp lexes-Left anterior fascicular block-Prolonged QT-Abnormal ECG- Ash AlbrightARS-CoV-2 (COVID-19) RNA [Presence] in Respiratory specimen by KENA with probe [id number] 00:49:50 Test Item Value Reference Range Interpretation Comments SARS-CoV-2 (COVID-19) RNA Not detected [Presence] in Respiratory specimen by KENA with probe detection (test code = 72341-1) Whether patient is employed in a Unknown healthcare setting (test code = 04818-2) Whether the patient has symptoms Unknown related to condition of interest (test code = 02422-4) Whether the patient was Unknown hospitalized for condition of interest (test code = 85779-5) Whether the patient was admitted Unknown to intensive care unit (ICU) for condition of interest (test code = 69319-5) Whether patient resides in a Unknown congregate care setting (test code = 72560-2) status (test code = Unknown 66534-3) Date and time of symptom onset Unknown (test code = 78967-5) Mason Aleman [facility] [id number] 18:22:00 Test Item Value Reference Range Interpretation Comments POC glucose (test code 108 mg/dL 65-99 H [employer] tor Name: = 78512-2) Olinda munroe ID: [id number] Lab Interpretation Abnormal (test code = 37835-6) [facility] [id number] 15:47:00 Test Item Value Reference Range Interpretation Comments Point of Care 1.0 mg/dL 0.6-1.3 Testing (test code = CREATTPOC) Point of Care 73 Reference Rang e for Testing (test code = Estimat ed GFR: Greater EGFRMDRDPOC) than 90 mL/min/ 1.73 m2NOTE:The MDRD equation has not been va lidated for use with th eelderly (over 70 years of age), women, patientswith se rious comorbid condit ion or persons with ex tremes ofbody size, mu scle mass, or nutrit ional status. - XR CHEST 2 [id number] 12:41:00 [facility] : 1945 Sex: M FAX: Norm Bradford DO [phone] [place]: E St: REG Patient Name: PRAMOD SANCHEZ Unit No: [id number] EXAMS: CPT CODE: [id number] XR CHEST 2 V [id number] - XR CHEST 2 V LOCATION: T18 INDICATION:Cough, congestion andchest pain The lungs are well expanded and free of infiltrates. The costophrenic recesses are sharpwithout effusion. The heart, mediastinum and bony structures are within normal limits. Postsurgical changes right shoulder noted. IMPRESSION: No active disease. at 1241 Reported and signed by: Nba Valdez D.O. CC: Norm Bradford DO Dictated Date/Time: 06/03/2020 (124)Technologist: Cruz Rao Transcribed Date/Time: 06/03/2020 (124) By: Kishore Orig Print D/T: S: 06/03/2020 ([id number]) BUDDY Singh NAME: PRAMOD SANCHEZ [address] [place] [address] Bl PHYS: ERMIAS.Shana - Norm Bradford, [place] [address] : 1945 AGE: 75 SEX: M LOC: B.ERS PHONE #: [phone] EXAM DATE: 06/03/2020 STATUS: REG ER FAX #: [phone] RAD NO: DC Dt: PAGE 1 Signed ReportCOMPREHENSIVE METABOLIC [id number] 12:33:00 Test Item Value Reference Range Interpretation Comments SODIUM (test code = 135.0 mmol/L 133-144 N NA) POTASSIUM (test code 4.2 mmol/L 3.5-5.1 N = K) CHLORIDE (test code 105 mmol/L 95-105 N = CL) CARBON DIOXIDE (test 25 mmol/L 21-32 N code = CO2) ANION GAP (test code 5.0 GAP calc 4.0-15.0 N = GAP) GLUCOSE (test code = 172 MG/DL 70-110 H GLU) BLOOD UREA NITROGEN 14 MG/DL 7-18 N (test code = BUN) GLOMERULAR 77 estGFR >60 The estimated FILTRATION RATE glomerular (test code = GFR) filtration rate is computed usingpatient ra ce, age, sex, and s anselmo creatinine. If any of theneeded da ta elements are mi ssing the Laboratory can notcompute an estimation of t he glomerular filtration rate .The GFR value units = ml/min/1.73 met er squared. EstimatedGFR va lues above 60 should be interpreted as >60, not anexact number.--- DRUG DOSAGE ALERT -- - Drug dosage adjustments uti lize different calculationpara meter s. CREATININE (test 0.95 MG/DL 0.55-1.30 N Results may be code = CREAT) depressed if p atient is takingN-Acetylc ystei ne (NAC) and Metamizole (Dipyrone). TOTAL PROTEIN (test 7.2 G/DL 6.4-8.2 N code = PROT) ALBUMIN (test code = 3.6 G/DL 3.4-5.0 N ALB) ALBUMIN/GLOBULIN 1.0 RATIO 1.2-2.2 L RATIO (test code = A/G) CALCIUM (test code = 9.0 MG/DL 8.5-10.1 N CA) BILIRUBIN TOTAL 0.57 MG/DL 0.00-1.00 N (test code = BILT) BILIRUBIN DIRECT 0.19 MG/DL 0.00-0.30 N (test code = BILD) BILIRUBIN INDIRECT 0.38 MG/DL 0.2-1.3 N (test code = BILIND) SGOT/AST (test code 15 Unit/L 15-37 N = AST) SGPT/ALT (test code 25 Unit/L 12-78 N = ALT) ALKALINE PHOSPHATASE 82 Unit/L 45-117 N TOTAL (test code = ALKP) INDEX HEMOLYSIS 1 NORMAL <10 1 NORMAL (test code = MG Index/DL HEMINDEX) INDEX ICTERIC (test 1 NORMAL <2 MG 1 NORMAL code = ICTINDEX) Index/DL INDEX LIPEMIA (test 1 NORMAL <50 1 NORMAL code = LIPINDEX) MG Index/DL COMPREHENSIVE METABOLIC [id number] 12:31:00 Test Item Value Reference Range Interpretation Comments SODIUM (test code = 135.0 mmol/L 133-144 N NA) POTASSIUM (test code 4.2 mmol/L 3.5-5.1 N = K) CHLORIDE (test code 105 mmol/L 95-105 N = CL) CARBON DIOXIDE (test 25 mmol/L 21-32 N code = CO2) ANION GAP (test code 5.0 GAP calc 4.0-15.0 N = GAP) GLUCOSE (test code = 172 MG/DL 70-110 H GLU) BLOOD UREA NITROGEN 14 MG/DL 7-18 N (test code = BUN) GLOMERULAR 77 estGFR >60 The estimated FILTRATION RATE glomerular (test code = GFR) filtration rate is computed usingpatient ra ce, age, sex, and s anselmo creatinine. If any of theneeded da ta elements are mi ssing the Laboratory can notcompute an estimation of t he glomerular filtration rate .The GFR value units = ml/min/1.73 met er squared. EstimatedGFR va lues above 60 should be interpreted as >60, not anexact number.--- DRUG DOSAGE ALERT -- - Drug dosage adjustments uti lize different calculationpara meter s. CREATININE (test 0.95 MG/DL 0.55-1.30 N Results may be code = CREAT) depressed if p atient is takingN-Acetylc ystei ne (NAC) and Metamizole (Dipyrone). TOTAL PROTEIN (test G/DL 6.4-8.2 code = PROT) ALBUMIN (test code = 3.6 G/DL 3.4-5.0 N ALB) ALBUMIN/GLOBULIN RATIO 1.2-2.2 RATIO (test code = A/G) CALCIUM (test code = 9.0 MG/DL 8.5-10.1 N CA) BILIRUBIN TOTAL MG/DL 0.00-1.00 (test code = BILT) BILIRUBIN DIRECT 0.19 MG/DL 0.00-0.30 N (test code = BILD) BILIRUBIN INDIRECT MG/DL 0.2-1.3 (test code = BILIND) SGOT/AST (test code 15 Unit/L 15-37 N = AST) SGPT/ALT (test code 25 Unit/L 12-78 N = ALT) ALKALINE PHOSPHATASE Unit/L 45-117 TOTAL (test code = ALKP) INDEX HEMOLYSIS 1 NORMAL <10 1 NORMAL (test code = MG Index/DL HEMINDEX) INDEX ICTERIC (test 1 NORMAL <2 MG 1 NORMAL code = ICTINDEX) Index/DL INDEX LIPEMIA (test 1 NORMAL <50 1 NORMAL code = LIPINDEX) MG Index/DL CBC W/AUTO [id number] 12:15:00 Test Item Value Reference Range Interpretation Comments WHITE BLOOD CELL (test code = 8.8 K/mm3 4.1-12.1 N WBC) RED BLOOD CELL (test code = RBC) 4.53 M/mm3 3.8-5.5 N HEMOGLOBIN (test code = HGB) 13.8 G/DL 10.6-15.8 N HEMATOCRIT (test code = HCT) 42.3 % 31.8-47.4 N MEAN CELL VOLUME (test code = 93.4 fL 80.1-101.1 N MCV) MEAN CELL HGB (test code = MCH) 30.5 pg 25.3-35.3 N MEAN CELL HGB CONCETRATION (test 32.6 G/DL 32.7-35.1 L code = MCHC) RED CELL DISTRIBUTION WIDTH 13.7 % 12.2-16.4 N (test code = RDW) RED CELL DISTRIBUTION WIDTH 46.9 fL 35.1-43.9 H (test code = RDW-SD) PLATELET COUNT (test code = PLT) 225 K/mm3 155-337 N MEAN PLATELET VOLUME (test code 10.8 fL 7.6-10.4 H = MPV) GRANULOCYTE % (test code = GR%) 83.4 % 37.8-82.6 H IMMATURE GRANULOCYTE % (test 0.5 % 0.0-2.0 N code = IG%) LYMPHOCYTE % (test code = LY%) 12.4 % 14.1-45.4 L MONOCYTE % (test code = MO%) 3.3 % 2.5-11.7 N EOSINOPHIL % (test code = EO%) 0.2 % 0.0-6.2 N BASOPHIL % (test code = BA%) 0.2 % 0.0-2.6 N NUCLEATED RBC % (test code = 0.0 /100WBC% 0.0-1.0 N NRBC%) GRANULOCYTE # (test code = GR#) 7.34 k/mm3 2.0-13.7 N IMMATURE GRANULOCYTE # (test 0.04 K/mm3 0.00-0.03 H code = IG#) LYMPHOCYTE # (test code = LY#) 1.09 K/mm3 0.6-3.8 N MONOCYTE # (test code = MO#) 0.29 K/mm3 0.11-0.59 N EOSINOPHIL # (test code = EO#) 0.02 K/mm3 0.0-0.4 N BASOPHIL # (test code = BA#) 0.02 K/mm3 0.0-0.1 N NUCLEATED RBC # (test code = 0.00 K/mm3 0.00-0.05 N NRBC#) HEPATIC FUNCTION [id number] 05:36:00 Test Item Value Reference Range Interpretation Comments TOTAL PROTEIN (test code 5.9 G/DL 6.4-8.2 L = PROT) ALBUMIN (test code = ALB) 2.5 G/DL 3.4-5.0 L BILIRUBIN TOTAL (test 0.28 MG/DL 0.00-1.00 N code = BILT) BILIRUBIN DIRECT (test < 0.10 MG/DL 0.00-0.30 N code = BILD) BILIRUBIN INDIRECT (test CALC CHRISTELLE MG/DL 0.2-1.3 L code = BILIND) SGOT/AST (test code = 22 Unit/L 15-37 N AST) SGPT/ALT (test code = 48 Unit/L 12-78 N ALT) ALKALINE PHOSPHATASE 65 Unit/L 45-117 N TOTAL (test code = ALKP) INDEX HEMOLYSIS (test 1 NORMAL <10 MG 1 NORMAL code = HEMINDEX) Index/DL INDEX ICTERIC (test code 1 NORMAL <2 MG 1 NORMAL = ICTINDEX) Index/DL INDEX LIPEMIA (test code 1 NORMAL <50 MG 1 NORMAL = LIPINDEX) Index/DL CREATININE W ESTIMATED [id number] 05:36:00 Test Item Value Reference Range Interpretation Comments ESTIMATED 96.94 est 85.0-125.0 N The estimated c reatinine CREATININE CRCL clearance is co mputed CLEARANCE (test using patien tweight, age, code = sex, and serum CREATCLEST) creatinine. Est imated creatinineclear ance units = ml/min. If an y of the needed dataelem ents are missing the Lab oratory can not compute anestimation of the creatinine diogo jadyn.--- DRUG DOSAGE TAVO RT --- Drug dosage adj ustments utilize differe nt calculationpara meters. GLOMERULAR 105 estGFR >60 The estimated g lomerular FILTRATION RATE filtration r ate is (test code = GFR) computed u singpatient race, age, sex, and serum creatinine. If any of theneeded data elements are missing the Laboratory can notcompute an estimation o f the glomerular filt ration rate.The GFR va lue units = ml/min/1.73 m eter squared. Estima tedGFR values above 60 should be interpreted as >60, not anexact number. --- DRUG DOSAGE ALERT -- - Drug dosage adjustme nts utilize differe nt calculationpara meters. CREATININE (test 0.73 MG/DL 0.55-1.30 N Results may be depressed code = CREAT) if patient is takingN-Acetylc ysteine (NAC) and Metam izole (Dipyrone). HEPATIC FUNCTION [id number] 05:31:00 Test Item Value Reference Range Interpretation Comments TOTAL PROTEIN (test code G/DL 6.4-8.2 = PROT) ALBUMIN (test code = ALB) 2.5 G/DL 3.4-5.0 L BILIRUBIN TOTAL (test MG/DL 0.00-1.00 code = BILT) BILIRUBIN DIRECT (test MG/DL 0.00-0.30 code = BILD) BILIRUBIN INDIRECT (test MG/DL 0.2-1.3 code = BILIND) SGOT/AST (test code = Unit/L 15-37 AST) SGPT/ALT (test code = Unit/L 12-78 ALT) ALKALINE PHOSPHATASE Unit/L 45-117 TOTAL (test code = ALKP) INDEX HEMOLYSIS (test 1 NORMAL <10 MG 1 NORMAL code = HEMINDEX) Index/DL INDEX ICTERIC (test code 1 NORMAL <2 MG 1 NORMAL = ICTINDEX) Index/DL INDEX LIPEMIA (test code 1 NORMAL <50 MG 1 NORMAL = LIPINDEX) Index/DL CREATININE W ESTIMATED [id number] 05:31:00 Test Item Value Reference Range Interpretation Comments ESTIMATED CREATININE CLEARANCE est CRCL 85.0-125.0 (test code = CREATCLEST) CREATININE (test code = CREAT) MG/DL 0.55-1.30 CBC W/AUTO [id number] 05:24:00 Test Item Value Reference Range Interpretation Comments WHITE BLOOD CELL (test code = 11.5 K/mm3 4.1-12.1 N WBC) RED BLOOD CELL (test code = RBC) 4.20 M/mm3 3.8-5.5 N HEMOGLOBIN (test code = HGB) 12.5 G/DL 10.6-15.8 N HEMATOCRIT (test code = HCT) 38.7 % 31.8-47.4 N MEAN CELL VOLUME (test code = 92.1 fL 80.1-101.1 N MCV) MEAN CELL HGB (test code = MCH) 29.8 pg 25.3-35.3 N MEAN CELL HGB CONCETRATION (test 32.3 G/DL 32.7-35.1 L code = MCHC) RED CELL DISTRIBUTION WIDTH 13.0 % 12.2-16.4 N (test code = RDW) RED CELL DISTRIBUTION WIDTH 43.2 fL 35.1-43.9 N (test code = RDW-SD) PLATELET COUNT (test code = PLT) 212 K/mm3 155-337 N MEAN PLATELET VOLUME (test code 11.3 fL 7.6-10.4 H = MPV) GRANULOCYTE % (test code = GR%) 87.2 % 37.8-82.6 H IMMATURE GRANULOCYTE % (test 1.0 % 0.0-2.0 N code = IG%) LYMPHOCYTE % (test code = LY%) 6.8 % 14.1-45.4 L MONOCYTE % (test code = MO%) 4.9 % 2.5-11.7 N EOSINOPHIL % (test code = EO%) 0.0 % 0.0-6.2 N BASOPHIL % (test code = BA%) 0.1 % 0.0-2.6 N NUCLEATED RBC % (test code = 0.0 /100WBC% 0.0-1.0 N NRBC%) GRANULOCYTE # (test code = GR#) 10.08 k/mm3 2.0-13.7 N IMMATURE GRANULOCYTE # (test 0.11 K/mm3 0.00-0.03 H code = IG#) LYMPHOCYTE # (test code = LY#) 0.78 K/mm3 0.6-3.8 N MONOCYTE # (test code = MO#) 0.56 K/mm3 0.11-0.59 N EOSINOPHIL # (test code = EO#) 0.00 K/mm3 0.0-0.4 N BASOPHIL # (test code = BA#) 0.01 K/mm3 0.0-0.1 N NUCLEATED RBC # (test code = 0.00 K/mm3 0.00-0.05 N NRBC#) COMPREHENSIVE METABOLIC [id number] 07:21:00 Test Item Value Reference Range Interpretation Comments SODIUM (test code = 135.0 mmol/L 133-144 N NA) POTASSIUM (test code 4.1 mmol/L 3.5-5.1 N = K) CHLORIDE (test code 102 mmol/L 95-105 N = CL) CARBON DIOXIDE (test 24 mmol/L 21-32 N code = CO2) ANION GAP (test code 9.0 GAP calc 4.0-15.0 N = GAP) GLUCOSE (test code = 267 MG/DL 70-110 H GLU) BLOOD UREA NITROGEN 16 MG/DL 7-18 N (test code = BUN) GLOMERULAR 85 estGFR >60 The estimated FILTRATION RATE glomerular (test code = GFR) filtration rate is computed usingpatient ra ce, age, sex, and s anselmo creatinine. If any of theneeded da ta elements are mi ssing the Laboratory can notcompute an estimation of t he glomerular filtration rate .The GFR value units = ml/min/1.73 met er squared. EstimatedGFR va lues above 60 should be interpreted as >60, not anexact number.--- DRUG DOSAGE ALERT -- - Drug dosage adjustments uti lize different calculationpara meter s. CREATININE (test 0.88 MG/DL 0.55-1.30 N Results may be code = CREAT) depressed if p atient is takingN-Acetylc ystei ne (NAC) and Metamizole (Dipyrone). TOTAL PROTEIN (test 6.3 G/DL 6.4-8.2 L code = PROT) ALBUMIN (test code = 2.6 G/DL 3.4-5.0 L ALB) ALBUMIN/GLOBULIN 0.7 RATIO 1.2-2.2 L RATIO (test code = A/G) CALCIUM (test code = 7.8 MG/DL 8.5-10.1 L CA) BILIRUBIN TOTAL 0.33 MG/DL 0.00-1.00 N (test code = BILT) BILIRUBIN DIRECT 0.15 MG/DL 0.00-0.30 N (test code = BILD) BILIRUBIN INDIRECT 0.18 MG/DL 0.2-1.3 L (test code = BILIND) SGOT/AST (test code 21 Unit/L 15-37 N = AST) SGPT/ALT (test code 45 Unit/L 12-78 N = ALT) ALKALINE PHOSPHATASE 69 Unit/L 45-117 N TOTAL (test code = ALKP) INDEX HEMOLYSIS 1 NORMAL <10 1 NORMAL (test code = MG Index/DL HEMINDEX) INDEX ICTERIC (test 1 NORMAL <2 MG 1 NORMAL code = ICTINDEX) Index/DL INDEX LIPEMIA (test 1 NORMAL <50 1 NORMAL code = LIPINDEX) MG Index/DL CREATININE W ESTIMATED [id number] 07:21:00 Test Item Value Reference Range Interpretation Comments ESTIMATED 80.41 est 85.0-125.0 L The estimated c reatinine CREATININE CRCL clearance is co mputed CLEARANCE (test using patien tweight, age, code = sex, and serum CREATCLEST) creatinine. Est imated creatinineclear ance units = ml/min. If an y of the needed dataelem ents are missing the Lab oratory can not compute anestimation of the creatinine diogo jadyn.--- DRUG DOSAGE TAVO RT --- Drug dosage adj ustments utilize differe nt calculationpara meters. COMPREHENSIVE METABOLIC [id number] 07:18:00 Test Item Value Reference Range Interpretation Comments SODIUM (test code = 135.0 mmol/L 133-144 N NA) POTASSIUM (test code 4.1 mmol/L 3.5-5.1 N = K) CHLORIDE (test code 102 mmol/L 95-105 N = CL) CARBON DIOXIDE (test 24 mmol/L 21-32 N code = CO2) ANION GAP (test code 9.0 GAP calc 4.0-15.0 N = GAP) GLUCOSE (test code = 267 MG/DL 70-110 H GLU) BLOOD UREA NITROGEN 16 MG/DL 7-18 N (test code = BUN) GLOMERULAR 85 estGFR >60 The estimated FILTRATION RATE glomerular (test code = GFR) filtration rate is computed usingpatient ra ce, age, sex, and s anselmo creatinine. If any of theneeded da ta elements are mi ssing the Laboratory can notcompute an estimation of t he glomerular filtration rate .The GFR value units = ml/min/1.73 met er squared. EstimatedGFR va lues above 60 should be interpreted as >60, not anexact number.--- DRUG DOSAGE ALERT -- - Drug dosage adjustments uti lize different calculationpara meter s. CREATININE (test 0.88 MG/DL 0.55-1.30 N Results may be code = CREAT) depressed if p atient is takingN-Acetylc ystei ne (NAC) and Metamizole (Dipyrone). TOTAL PROTEIN (test G/DL 6.4-8.2 code = PROT) ALBUMIN (test code = 2.6 G/DL 3.4-5.0 L ALB) ALBUMIN/GLOBULIN RATIO 1.2-2.2 RATIO (test code = A/G) CALCIUM (test code = 7.8 MG/DL 8.5-10.1 L CA) BILIRUBIN TOTAL MG/DL 0.00-1.00 (test code = BILT) BILIRUBIN DIRECT 0.15 MG/DL 0.00-0.30 N (test code = BILD) BILIRUBIN INDIRECT MG/DL 0.2-1.3 (test code = BILIND) SGOT/AST (test code 21 Unit/L 15-37 N = AST) SGPT/ALT (test code 45 Unit/L 12-78 N = ALT) ALKALINE PHOSPHATASE Unit/L 45-117 TOTAL (test code = ALKP) INDEX HEMOLYSIS 1 NORMAL <10 1 NORMAL (test code = MG Index/DL HEMINDEX) INDEX ICTERIC (test 1 NORMAL <2 MG 1 NORMAL code = ICTINDEX) Index/DL INDEX LIPEMIA (test 1 NORMAL <50 1 NORMAL code = LIPINDEX) MG Index/DL CREATININE W ESTIMATED [id number] 07:18:00 Test Item Value Reference Range Interpretation Comments ESTIMATED 80.41 est 85.0-125.0 L The estimated c reatinine CREATININE CRCL clearance is co mputed CLEARANCE (test using alan doss, age, code = sex, and serum CREATCLEST) creatinine. Est imated creatinineclear ance units = ml/min. If an y of the needed dataelem ents are missing the Lab oratory can not compute anestimation of the creatinine diogo jadyn.--- DRUG DOSAGE TAVO RT --- Drug dosage adj ustments utilize differe nt calculationpara meters. CBC W/AUTO [id number] 07:00:00 Test Item Value Reference Range Interpretation Comments WHITE BLOOD CELL (test code = 10.1 K/mm3 4.1-12.1 N WBC) RED BLOOD CELL (test code = RBC) 4.39 M/mm3 3.8-5.5 N HEMOGLOBIN (test code = HGB) 13.3 G/DL 10.6-15.8 N HEMATOCRIT (test code = HCT) 41.1 % 31.8-47.4 N MEAN CELL VOLUME (test code = 93.6 fL 80.1-101.1 N MCV) MEAN CELL HGB (test code = MCH) 30.3 pg 25.3-35.3 N MEAN CELL HGB CONCETRATION (test 32.4 G/DL 32.7-35.1 L code = MCHC) RED CELL DISTRIBUTION WIDTH 13.2 % 12.2-16.4 N (test code = RDW) RED CELL DISTRIBUTION WIDTH 45.1 fL 35.1-43.9 H (test code = RDW-SD) PLATELET COUNT (test code = PLT) 208 K/mm3 155-337 N MEAN PLATELET VOLUME (test code 11.5 fL 7.6-10.4 H = MPV) GRANULOCYTE % (test code = GR%) 89.0 % 37.8-82.6 H IMMATURE GRANULOCYTE % (test 0.5 % 0.0-2.0 N code = IG%) LYMPHOCYTE % (test code = LY%) 6.4 % 14.1-45.4 L MONOCYTE % (test code = MO%) 4.0 % 2.5-11.7 N EOSINOPHIL % (test code = EO%) 0.0 % 0.0-6.2 N BASOPHIL % (test code = BA%) 0.1 % 0.0-2.6 N NUCLEATED RBC % (test code = 0.0 /100WBC% 0.0-1.0 N NRBC%) GRANULOCYTE # (test code = GR#) 9.01 k/mm3 2.0-13.7 N IMMATURE GRANULOCYTE # (test 0.05 K/mm3 0.00-0.03 H code = IG#) LYMPHOCYTE # (test code = LY#) 0.65 K/mm3 0.6-3.8 N MONOCYTE # (test code = MO#) 0.40 K/mm3 0.11-0.59 N EOSINOPHIL # (test code = EO#) 0.00 K/mm3 0.0-0.4 N BASOPHIL # (test code = BA#) 0.01 K/mm3 0.0-0.1 N NUCLEATED RBC # (test code = 0.00 K/mm3 0.00-0.05 N NRBC#) CBC W/MANUAL [id number] 09:31:00 Test Item Value Reference Range Interpretation Comments WHITE BLOOD CELL (test 11.3 K/mm3 4.1-12.1 N code = WBC) RED BLOOD CELL (test 4.39 M/mm3 3.8-5.5 N code = RBC) HEMOGLOBIN (test code = 13.1 G/DL 10.6-15.8 N HGB) HEMATOCRIT (test code = 40.8 % 31.8-47.4 N HCT) MEAN CELL VOLUME (test 92.9 fL 80.1-101.1 N code = MCV) MEAN CELL HGB (test code 29.8 pg 25.3-35.3 N = MCH) MEAN CELL HGB 32.1 G/DL 32.7-35.1 L CONCETRATION (test code = MCHC) RED CELL DISTRIBUTION 13.1 % 12.2-16.4 N WIDTH (test code = RDW) RED CELL DISTRIBUTION 44.8 fL 35.1-43.9 H WIDTH (test code = RDW-SD) PLATELET COUNT (test 213 K/mm3 155-337 N code = PLT) MEAN PLATELET VOLUME 11.2 fL 7.6-10.4 H (test code = MPV) GRANULOCYTE % (test code 88.8 % 37.8-82.6 H = GR%) IMMATURE GRANULOCYTE % 0.8 % 0.0-2.0 N (test code = IG%) LYMPHOCYTE % (test code 6.7 % 14.1-45.4 L = LY%) MONOCYTE % (test code = 3.6 % 2.5-11.7 N MO%) EOSINOPHIL % (test code 0.0 % 0.0-6.2 N = EO%) BASOPHIL % (test code = 0.1 % 0.0-2.6 N BA%) NUCLEATED RBC % (test 0.0 /100WBC% 0.0-1.0 N code = NRBC%) GRANULOCYTE # (test code 10.06 k/mm3 2.0-13.7 N = GR#) IMMATURE GRANULOCYTE # 0.09 K/mm3 0.00-0.03 H (test code = IG#) LYMPHOCYTE # (test code 0.76 K/mm3 0.6-3.8 N = LY#) MONOCYTE # (test code = 0.41 K/mm3 0.11-0.59 N MO#) EOSINOPHIL # (test code 0.00 K/mm3 0.0-0.4 N = EO#) BASOPHIL # (test code = 0.01 K/mm3 0.0-0.1 N BA#) NUCLEATED RBC # (test 0.00 K/mm3 0.00-0.05 N code = NRBC#) MANUAL DIFF REQUIRED MAN DIFF INDICATED CRITERIA (test code = MDIFF) DIFF/SCN WBC [id number] 09:31:00 Test Item Value Reference Range Interpretation Comments TOTAL CELLS COUNTED (test 100 #CELLS >100 code = TCC) SEGMENTED NEUTROPHILS (test 90 % 40-75 H code = SEG) LYMPHOCYTE (test code = 5 % 12.6-43.5 L LYMPH) MONOCYTE (test code = MON) 5 % 4.2-12.7 N MORPHOLOGY COMMENT (test NORM RBCS ON SCAN NORMAL RBCS code = MOC) PLATELET ESTIMATE (test ADEQ ON SCAN ADEQUATE code = PLTEST) CBC W/MANUAL [id number] 09:26:00 Test Item Value Reference Range Interpretation Comments WHITE BLOOD CELL (test 11.3 K/mm3 4.1-12.1 N code = WBC) RED BLOOD CELL (test 4.39 M/mm3 3.8-5.5 N code = RBC) HEMOGLOBIN (test code = 13.1 G/DL 10.6-15.8 N HGB) HEMATOCRIT (test code = 40.8 % 31.8-47.4 N HCT) MEAN CELL VOLUME (test 92.9 fL 80.1-101.1 N code = MCV) MEAN CELL HGB (test code 29.8 pg 25.3-35.3 N = MCH) MEAN CELL HGB 32.1 G/DL 32.7-35.1 L CONCETRATION (test code = MCHC) RED CELL DISTRIBUTION 13.1 % 12.2-16.4 N WIDTH (test code = RDW) RED CELL DISTRIBUTION 44.8 fL 35.1-43.9 H WIDTH (test code = RDW-SD) PLATELET COUNT (test 213 K/mm3 155-337 N code = PLT) MEAN PLATELET VOLUME 11.2 fL 7.6-10.4 H (test code = MPV) GRANULOCYTE % (test code 88.8 % 37.8-82.6 H = GR%) IMMATURE GRANULOCYTE % 0.8 % 0.0-2.0 N (test code = IG%) LYMPHOCYTE % (test code 6.7 % 14.1-45.4 L = LY%) MONOCYTE % (test code = 3.6 % 2.5-11.7 N MO%) EOSINOPHIL % (test code 0.0 % 0.0-6.2 N = EO%) BASOPHIL % (test code = 0.1 % 0.0-2.6 N BA%) NUCLEATED RBC % (test 0.0 /100WBC% 0.0-1.0 N code = NRBC%) GRANULOCYTE # (test code 10.06 k/mm3 2.0-13.7 N = GR#) IMMATURE GRANULOCYTE # 0.09 K/mm3 0.00-0.03 H (test code = IG#) LYMPHOCYTE # (test code 0.76 K/mm3 0.6-3.8 N = LY#) MONOCYTE # (test code = 0.41 K/mm3 0.11-0.59 N MO#) EOSINOPHIL # (test code 0.00 K/mm3 0.0-0.4 N = EO#) BASOPHIL # (test code = 0.01 K/mm3 0.0-0.1 N BA#) NUCLEATED RBC # (test 0.00 K/mm3 0.00-0.05 N code = NRBC#) MANUAL DIFF REQUIRED MAN DIFF INDICATED CRITERIA (test code = MDIFF) DIFF/SCN WBC [id number] 09:26:00 Test Item Value Reference Range Interpretation Comments TOTAL CELLS COUNTED (test code = #CELLS >100 TCC) SEGMENTED NEUTROPHILS (test code = % 40-75 SEG) LYMPHOCYTE (test code = LYMPH) % 12.6-43.5 MORPHOLOGY COMMENT (test code = MOC) ON SCAN NORMAL RBCS PLATELET ESTIMATE (test code = ON SCAN ADEQUATE PLTEST) CBC W/MANUAL [id number] 09:26:00 Test Item Value Reference Range Interpretation Comments WHITE BLOOD CELL (test 11.3 K/mm3 4.1-12.1 N code = WBC) RED BLOOD CELL (test 4.39 M/mm3 3.8-5.5 N code = RBC) HEMOGLOBIN (test code = 13.1 G/DL 10.6-15.8 N HGB) HEMATOCRIT (test code = 40.8 % 31.8-47.4 N HCT) MEAN CELL VOLUME (test 92.9 fL 80.1-101.1 N code = MCV) MEAN CELL HGB (test code 29.8 pg 25.3-35.3 N = MCH) MEAN CELL HGB 32.1 G/DL 32.7-35.1 L CONCETRATION (test code = MCHC) RED CELL DISTRIBUTION 13.1 % 12.2-16.4 N WIDTH (test code = RDW) RED CELL DISTRIBUTION 44.8 fL 35.1-43.9 H WIDTH (test code = RDW-SD) PLATELET COUNT (test 213 K/mm3 155-337 N code = PLT) MEAN PLATELET VOLUME 11.2 fL 7.6-10.4 H (test code = MPV) GRANULOCYTE % (test code 88.8 % 37.8-82.6 H = GR%) IMMATURE GRANULOCYTE % 0.8 % 0.0-2.0 N (test code = IG%) LYMPHOCYTE % (test code 6.7 % 14.1-45.4 L = LY%) MONOCYTE % (test code = 3.6 % 2.5-11.7 N MO%) EOSINOPHIL % (test code 0.0 % 0.0-6.2 N = EO%) BASOPHIL % (test code = 0.1 % 0.0-2.6 N BA%) NUCLEATED RBC % (test 0.0 /100WBC% 0.0-1.0 N code = NRBC%) GRANULOCYTE # (test code 10.06 k/mm3 2.0-13.7 N = GR#) IMMATURE GRANULOCYTE # 0.09 K/mm3 0.00-0.03 H (test code = IG#) LYMPHOCYTE # (test code 0.76 K/mm3 0.6-3.8 N = LY#) MONOCYTE # (test code = 0.41 K/mm3 0.11-0.59 N MO#) EOSINOPHIL # (test code 0.00 K/mm3 0.0-0.4 N = EO#) BASOPHIL # (test code = 0.01 K/mm3 0.0-0.1 N BA#) NUCLEATED RBC # (test 0.00 K/mm3 0.00-0.05 N code = NRBC#) MANUAL DIFF REQUIRED MAN DIFF INDICATED CRITERIA (test code = MDIFF) DIFF/SCN WBC [id number] 09:26:00 Test Item Value Reference Range Interpretation Comments TOTAL CELLS COUNTED (test code = #CELLS >100 TCC) SEGMENTED NEUTROPHILS (test code = % 40-75 SEG) LYMPHOCYTE (test code = LYMPH) % 12.6-43.5 MORPHOLOGY COMMENT (test code = MOC) ON SCAN NORMAL RBCS PLATELET ESTIMATE (test code = ON SCAN ADEQUATE PLTEST) HEPATIC FUNCTION [id number] 07:33:00 Test Item Value Reference Range Interpretation Comments TOTAL PROTEIN (test code 6.6 G/DL 6.4-8.2 N = PROT) ALBUMIN (test code = ALB) 2.6 G/DL 3.4-5.0 L BILIRUBIN TOTAL (test 0.32 MG/DL 0.00-1.00 N code = BILT) BILIRUBIN DIRECT (test 0.15 MG/DL 0.00-0.30 N code = BILD) BILIRUBIN INDIRECT (test 0.17 MG/DL 0.2-1.3 L code = BILIND) SGOT/AST (test code = 39 Unit/L 15-37 H AST) SGPT/ALT (test code = 44 Unit/L 12-78 N ALT) ALKALINE PHOSPHATASE 68 Unit/L 45-117 N TOTAL (test code = ALKP) INDEX HEMOLYSIS (test 1 NORMAL <10 MG 1 NORMAL code = HEMINDEX) Index/DL INDEX ICTERIC (test code 1 NORMAL <2 MG 1 NORMAL = ICTINDEX) Index/DL INDEX LIPEMIA (test code 1 NORMAL <50 MG 1 NORMAL = LIPINDEX) Index/DL CREATININE W ESTIMATED [id number] 07:33:00 Test Item Value Reference Range Interpretation Comments ESTIMATED 102.56 est 85.0-125.0 N The estimated c reatinine CREATININE CRCL clearance is co mputed CLEARANCE (test using alan doss, age, code = sex, and serum CREATCLEST) creatinine. Est imated creatinineclear ance units = ml/min. If an y of the needed dataelem ents are missing the Lab oratory can not compute anestimation of the creatinine diogo jadyn.--- DRUG DOSAGE TAVO RT --- Drug dosage adj ustments utilize differe nt calculationpara meters. GLOMERULAR 112 estGFR >60 The estimated g lomerular FILTRATION RATE filtration r ate is (test code = GFR) computed u singpatient race, age, sex, and serum creatinine. If any of theneeded data elements are missing the Laboratory can notcompute an estimation o f the glomerular filt ration rate.The GFR va lue units = ml/min/1.73 m eter squared. Estima tedGFR values above 60 should be interpreted as >60, not anexact number. --- DRUG DOSAGE ALERT -- - Drug dosage adjustme nts utilize differe nt calculationpara meters. CREATININE (test 0.69 MG/DL 0.55-1.30 N Results may be depressed code = CREAT) if patient is takingN-Acetylc ysteine (NAC) and Metam izole (Dipyrone). HEPATIC FUNCTION [id number] 07:27:00 Test Item Value Reference Range Interpretation Comments TOTAL PROTEIN (test code G/DL 6.4-8.2 = PROT) ALBUMIN (test code = ALB) 2.6 G/DL 3.4-5.0 L BILIRUBIN TOTAL (test MG/DL 0.00-1.00 code = BILT) BILIRUBIN DIRECT (test MG/DL 0.00-0.30 code = BILD) BILIRUBIN INDIRECT (test MG/DL 0.2-1.3 code = BILIND) SGOT/AST (test code = 39 Unit/L 15-37 H AST) SGPT/ALT (test code = 44 Unit/L 12-78 N ALT) ALKALINE PHOSPHATASE Unit/L 45-117 TOTAL (test code = ALKP) INDEX HEMOLYSIS (test 1 NORMAL <10 MG 1 NORMAL code = HEMINDEX) Index/DL INDEX ICTERIC (test code 1 NORMAL <2 MG 1 NORMAL = ICTINDEX) Index/DL INDEX LIPEMIA (test code 1 NORMAL <50 MG 1 NORMAL = LIPINDEX) Index/DL CREATININE W ESTIMATED [id number] 07:27:00 Test Item Value Reference Range Interpretation Comments ESTIMATED CREATININE CLEARANCE est CRCL 85.0-125.0 (test code = CREATCLEST) CREATININE (test code = CREAT) MG/DL 0.55-1.30 CBC W/AUTO [id number] 07:14:00 Test Item Value Reference Range Interpretation Comments WHITE BLOOD CELL (test code = 11.3 K/mm3 4.1-12.1 N WBC) RED BLOOD CELL (test code = RBC) 4.39 M/mm3 3.8-5.5 N HEMOGLOBIN (test code = HGB) 13.1 G/DL 10.6-15.8 N HEMATOCRIT (test code = HCT) 40.8 % 31.8-47.4 N MEAN CELL VOLUME (test code = 92.9 fL 80.1-101.1 N MCV) MEAN CELL HGB (test code = MCH) 29.8 pg 25.3-35.3 N MEAN CELL HGB CONCETRATION (test 32.1 G/DL 32.7-35.1 L code = MCHC) RED CELL DISTRIBUTION WIDTH 13.1 % 12.2-16.4 N (test code = RDW) RED CELL DISTRIBUTION WIDTH 44.8 fL 35.1-43.9 H (test code = RDW-SD) PLATELET COUNT (test code = PLT) 213 K/mm3 155-337 N MEAN PLATELET VOLUME (test code 11.2 fL 7.6-10.4 H = MPV) GRANULOCYTE % (test code = GR%) 88.8 % 37.8-82.6 H IMMATURE GRANULOCYTE % (test 0.8 % 0.0-2.0 N code = IG%) LYMPHOCYTE % (test code = LY%) 6.7 % 14.1-45.4 L MONOCYTE % (test code = MO%) 3.6 % 2.5-11.7 N EOSINOPHIL % (test code = EO%) 0.0 % 0.0-6.2 N BASOPHIL % (test code = BA%) 0.1 % 0.0-2.6 N NUCLEATED RBC % (test code = 0.0 /100WBC% 0.0-1.0 N NRBC%) GRANULOCYTE # (test code = GR#) 10.06 k/mm3 2.0-13.7 N IMMATURE GRANULOCYTE # (test 0.09 K/mm3 0.00-0.03 H code = IG#) LYMPHOCYTE # (test code = LY#) 0.76 K/mm3 0.6-3.8 N MONOCYTE # (test code = MO#) 0.41 K/mm3 0.11-0.59 N EOSINOPHIL # (test code = EO#) 0.00 K/mm3 0.0-0.4 N BASOPHIL # (test code = BA#) 0.01 K/mm3 0.0-0.1 N NUCLEATED RBC # (test code = 0.00 K/mm3 0.00-0.05 N NRBC#) CBC W/MANUAL [id number] 08:46:00 Test Item Value Reference Range Interpretation Comments WHITE BLOOD CELL (test 10.2 K/mm3 4.1-12.1 N code = WBC) RED BLOOD CELL (test 4.62 M/mm3 3.8-5.5 N code = RBC) HEMOGLOBIN (test code = 13.9 G/DL 10.6-15.8 N HGB) HEMATOCRIT (test code = 42.7 % 31.8-47.4 N HCT) MEAN CELL VOLUME (test 92.4 fL 80.1-101.1 N code = MCV) MEAN CELL HGB (test code 30.1 pg 25.3-35.3 N = MCH) MEAN CELL HGB 32.6 G/DL 32.7-35.1 L CONCETRATION (test code = MCHC) RED CELL DISTRIBUTION 13.1 % 12.2-16.4 N WIDTH (test code = RDW) RED CELL DISTRIBUTION 44.9 fL 35.1-43.9 H WIDTH (test code = RDW-SD) PLATELET COUNT (test 197 K/mm3 155-337 N code = PLT) MEAN PLATELET VOLUME 11.1 fL 7.6-10.4 H (test code = MPV) GRANULOCYTE % (test code 86.9 % 37.8-82.6 H = GR%) IMMATURE GRANULOCYTE % 0.7 % 0.0-2.0 N (test code = IG%) LYMPHOCYTE % (test code 7.6 % 14.1-45.4 L = LY%) MONOCYTE % (test code = 4.7 % 2.5-11.7 N MO%) EOSINOPHIL % (test code 0.0 % 0.0-6.2 N = EO%) BASOPHIL % (test code = 0.1 % 0.0-2.6 N BA%) NUCLEATED RBC % (test 0.0 /100WBC% 0.0-1.0 N code = NRBC%) GRANULOCYTE # (test code 8.84 k/mm3 2.0-13.7 N = GR#) IMMATURE GRANULOCYTE # 0.07 K/mm3 0.00-0.03 H (test code = IG#) LYMPHOCYTE # (test code 0.77 K/mm3 0.6-3.8 N = LY#) MONOCYTE # (test code = 0.48 K/mm3 0.11-0.59 N MO#) EOSINOPHIL # (test code 0.00 K/mm3 0.0-0.4 N = EO#) BASOPHIL # (test code = 0.01 K/mm3 0.0-0.1 N BA#) NUCLEATED RBC # (test 0.00 K/mm3 0.00-0.05 N code = NRBC#) MANUAL DIFF REQUIRED MAN DIFF INDICATED CRITERIA (test code = MDIFF) DIFF/SCN WBC [id number] 08:46:00 Test Item Value Reference Range Interpretation Comments TOTAL CELLS COUNTED 100 #CELLS >100 (test code = TCC) SEGMENTED NEUTROPHILS 86 % 40-75 H (test code = SEG) LYMPHOCYTE (test code = 8 % 12.6-43.5 L LYMPH) MONOCYTE (test code = 6 % 4.2-12.7 N MON) DIFFERENTIAL COMMENT AUTO DIFF CONFIRMED SCAN COMM (test code = DC) COMMENT PLATELET ESTIMATE (test ADEQ ON SCAN ADEQUATE code = PLTEST) COMPREHENSIVE METABOLIC [id number] 07:27:00 Test Item Value Reference Range Interpretation Comments SODIUM (test code = 133.0 mmol/L 133-144 N NA) POTASSIUM (test code 3.9 mmol/L 3.5-5.1 N = K) CHLORIDE (test code 102 mmol/L 95-105 N = CL) CARBON DIOXIDE (test 24 mmol/L 21-32 N code = CO2) ANION GAP (test code 7.0 GAP calc 4.0-15.0 N = GAP) GLUCOSE (test code = 172 MG/DL 70-110 H GLU) BLOOD UREA NITROGEN 16 MG/DL 7-18 N (test code = BUN) GLOMERULAR 97 estGFR >60 The estimated FILTRATION RATE glomerular (test code = GFR) filtration rate is computed usingpatient ra ce, age, sex, and s anselmo creatinine. If any of theneeded da ta elements are mi ssing the Laboratory can notcompute an estimation of t he glomerular filtration rate .The GFR value units = ml/min/1.73 met er squared. EstimatedGFR va lues above 60 should be interpreted as >60, not anexact number.--- DRUG DOSAGE ALERT -- - Drug dosage adjustments uti lize different calculationpara meter s. CREATININE (test 0.78 MG/DL 0.55-1.30 N Results may be code = CREAT) depressed if p atient is takingN-Acetylc ystei ne (NAC) and Metamizole (Dipyrone). TOTAL PROTEIN (test 6.9 G/DL 6.4-8.2 N code = PROT) ALBUMIN (test code = 2.9 G/DL 3.4-5.0 L ALB) ALBUMIN/GLOBULIN 0.7 RATIO 1.2-2.2 L RATIO (test code = A/G) CALCIUM (test code = 8.2 MG/DL 8.5-10.1 L CA) BILIRUBIN TOTAL 0.29 MG/DL 0.00-1.00 N (test code = BILT) BILIRUBIN DIRECT 0.14 MG/DL 0.00-0.30 N (test code = BILD) BILIRUBIN INDIRECT 0.15 MG/DL 0.2-1.3 L (test code = BILIND) SGOT/AST (test code 30 Unit/L 15-37 N = AST) SGPT/ALT (test code 32 Unit/L 12-78 N = ALT) ALKALINE PHOSPHATASE 72 Unit/L 45-117 N TOTAL (test code = ALKP) INDEX HEMOLYSIS 1 NORMAL <10 1 NORMAL (test code = MG Index/DL HEMINDEX) INDEX ICTERIC (test 1 NORMAL <2 MG 1 NORMAL code = ICTINDEX) Index/DL INDEX LIPEMIA (test 1 NORMAL <50 1 NORMAL code = LIPINDEX) MG Index/DL CREATININE W ESTIMATED [id number] 07:27:00 Test Item Value Reference Range Interpretation Comments ESTIMATED 90.72 est 85.0-125.0 N The estimated c reatinine CREATININE CRCL clearance is co mputed CLEARANCE (test using alan doss, age, code = sex, and serum CREATCLEST) creatinine. Est imated creatinineclear ance units = ml/min. If an y of the needed dataelem ents are missing the Lab oratory can not compute anestimation of the creatinine diogo jadyn.--- DRUG DOSAGE TAVO RT --- Drug dosage adj ustments utilize differe nt calculationpara meters. COMPREHENSIVE METABOLIC [id number] 07:09:00 Test Item Value Reference Range Interpretation Comments SODIUM (test code = NA) 133.0 mmol/L 133-144 N POTASSIUM (test code = K) 3.9 mmol/L 3.5-5.1 N CHLORIDE (test code = CL) 102 mmol/L 95-105 N CARBON DIOXIDE (test code mmol/L 21-32 = CO2) ANION GAP (test code = GAP calc 4.0-15.0 GAP) GLUCOSE (test code = GLU) MG/DL 70-110 BLOOD UREA NITROGEN (test MG/DL 7-18 code = BUN) CREATININE (test code = MG/DL 0.55-1.30 CREAT) TOTAL PROTEIN (test code G/DL 6.4-8.2 = PROT) ALBUMIN (test code = ALB) G/DL 3.4-5.0 ALBUMIN/GLOBULIN RATIO RATIO 1.2-2.2 (test code = A/G) CALCIUM (test code = CA) MG/DL 8.5-10.1 BILIRUBIN TOTAL (test MG/DL 0.00-1.00 code = BILT) BILIRUBIN DIRECT (test MG/DL 0.00-0.30 code = BILD) BILIRUBIN INDIRECT (test MG/DL 0.2-1.3 code = BILIND) SGOT/AST (test code = Unit/L 15-37 AST) SGPT/ALT (test code = Unit/L 12-78 ALT) ALKALINE PHOSPHATASE Unit/L 45-117 TOTAL (test code = ALKP) INDEX HEMOLYSIS (test 1 NORMAL <10 MG 1 NORMAL code = HEMINDEX) Index/DL INDEX ICTERIC (test code 1 NORMAL <2 MG 1 NORMAL = ICTINDEX) Index/DL INDEX LIPEMIA (test code 1 NORMAL <50 MG 1 NORMAL = LIPINDEX) Index/DL CREATININE W ESTIMATED [id number] 07:09:00 Test Item Value Reference Range Interpretation Comments ESTIMATED CREATININE CLEARANCE est CRCL 85.0-125.0 (test code = CREATCLEST) CBC W/MANUAL [id number] 07:05:00 Test Item Value Reference Range Interpretation Comments WHITE BLOOD CELL (test 10.2 K/mm3 4.1-12.1 N code = WBC) RED BLOOD CELL (test 4.62 M/mm3 3.8-5.5 N code = RBC) HEMOGLOBIN (test code = 13.9 G/DL 10.6-15.8 N HGB) HEMATOCRIT (test code = 42.7 % 31.8-47.4 N HCT) MEAN CELL VOLUME (test 92.4 fL 80.1-101.1 N code = MCV) MEAN CELL HGB (test code 30.1 pg 25.3-35.3 N = MCH) MEAN CELL HGB 32.6 G/DL 32.7-35.1 L CONCETRATION (test code = MCHC) RED CELL DISTRIBUTION 13.1 % 12.2-16.4 N WIDTH (test code = RDW) RED CELL DISTRIBUTION 44.9 fL 35.1-43.9 H WIDTH (test code = RDW-SD) PLATELET COUNT (test 197 K/mm3 155-337 N code = PLT) MEAN PLATELET VOLUME 11.1 fL 7.6-10.4 H (test code = MPV) GRANULOCYTE % (test code 86.9 % 37.8-82.6 H = GR%) IMMATURE GRANULOCYTE % 0.7 % 0.0-2.0 N (test code = IG%) LYMPHOCYTE % (test code 7.6 % 14.1-45.4 L = LY%) MONOCYTE % (test code = 4.7 % 2.5-11.7 N MO%) EOSINOPHIL % (test code 0.0 % 0.0-6.2 N = EO%) BASOPHIL % (test code = 0.1 % 0.0-2.6 N BA%) NUCLEATED RBC % (test 0.0 /100WBC% 0.0-1.0 N code = NRBC%) GRANULOCYTE # (test code 8.84 k/mm3 2.0-13.7 N = GR#) IMMATURE GRANULOCYTE # 0.07 K/mm3 0.00-0.03 H (test code = IG#) LYMPHOCYTE # (test code 0.77 K/mm3 0.6-3.8 N = LY#) MONOCYTE # (test code = 0.48 K/mm3 0.11-0.59 N MO#) EOSINOPHIL # (test code 0.00 K/mm3 0.0-0.4 N = EO#) BASOPHIL # (test code = 0.01 K/mm3 0.0-0.1 N BA#) NUCLEATED RBC # (test 0.00 K/mm3 0.00-0.05 N code = NRBC#) MANUAL DIFF REQUIRED MAN DIFF INDICATED CRITERIA (test code = MDIFF) DIFF/SCN WBC [id number] 07:05:00 Test Item Value Reference Range Interpretation Comments TOTAL CELLS COUNTED (test code = #CELLS >100 TCC) SEGMENTED NEUTROPHILS (test code = % 40-75 SEG) LYMPHOCYTE (test code = LYMPH) % 12.6-43.5 MORPHOLOGY COMMENT (test code = MOC) ON SCAN NORMAL RBCS PLATELET ESTIMATE (test code = ON SCAN ADEQUATE PLTEST) CBC W/MANUAL [id number] 07:05:00 Test Item Value Reference Range Interpretation Comments WHITE BLOOD CELL (test 10.2 K/mm3 4.1-12.1 N code = WBC) RED BLOOD CELL (test 4.62 M/mm3 3.8-5.5 N code = RBC) HEMOGLOBIN (test code = 13.9 G/DL 10.6-15.8 N HGB) HEMATOCRIT (test code = 42.7 % 31.8-47.4 N HCT) MEAN CELL VOLUME (test 92.4 fL 80.1-101.1 N code = MCV) MEAN CELL HGB (test code 30.1 pg 25.3-35.3 N = MCH) MEAN CELL HGB 32.6 G/DL 32.7-35.1 L CONCETRATION (test code = MCHC) RED CELL DISTRIBUTION 13.1 % 12.2-16.4 N WIDTH (test code = RDW) RED CELL DISTRIBUTION 44.9 fL 35.1-43.9 H WIDTH (test code = RDW-SD) PLATELET COUNT (test 197 K/mm3 155-337 N code = PLT) MEAN PLATELET VOLUME 11.1 fL 7.6-10.4 H (test code = MPV) GRANULOCYTE % (test code 86.9 % 37.8-82.6 H = GR%) IMMATURE GRANULOCYTE % 0.7 % 0.0-2.0 N (test code = IG%) LYMPHOCYTE % (test code 7.6 % 14.1-45.4 L = LY%) MONOCYTE % (test code = 4.7 % 2.5-11.7 N MO%) EOSINOPHIL % (test code 0.0 % 0.0-6.2 N = EO%) BASOPHIL % (test code = 0.1 % 0.0-2.6 N BA%) NUCLEATED RBC % (test 0.0 /100WBC% 0.0-1.0 N code = NRBC%) GRANULOCYTE # (test code 8.84 k/mm3 2.0-13.7 N = GR#) IMMATURE GRANULOCYTE # 0.07 K/mm3 0.00-0.03 H (test code = IG#) LYMPHOCYTE # (test code 0.77 K/mm3 0.6-3.8 N = LY#) MONOCYTE # (test code = 0.48 K/mm3 0.11-0.59 N MO#) EOSINOPHIL # (test code 0.00 K/mm3 0.0-0.4 N = EO#) BASOPHIL # (test code = 0.01 K/mm3 0.0-0.1 N BA#) NUCLEATED RBC # (test 0.00 K/mm3 0.00-0.05 N code = NRBC#) MANUAL DIFF REQUIRED MAN DIFF INDICATED CRITERIA (test code = MDIFF) DIFF/SCN WBC [id number] 07:05:00 Test Item Value Reference Range Interpretation Comments TOTAL CELLS COUNTED (test code = #CELLS >100 TCC) SEGMENTED NEUTROPHILS (test code = % 40-75 SEG) LYMPHOCYTE (test code = LYMPH) % 12.6-43.5 MORPHOLOGY COMMENT (test code = MOC) ON SCAN NORMAL RBCS PLATELET ESTIMATE (test code = ON SCAN ADEQUATE PLTEST) HEPATIC FUNCTION [id number] 18:12:00 Test Item Value Reference Range Interpretation Comments TOTAL PROTEIN (test code 7.0 G/DL 6.4-8.2 N = PROT) ALBUMIN (test code = ALB) 2.7 G/DL 3.4-5.0 L BILIRUBIN TOTAL (test 0.24 MG/DL 0.00-1.00 N code = BILT) BILIRUBIN DIRECT (test < 0.10 MG/DL 0.00-0.30 N code = BILD) BILIRUBIN INDIRECT (test 0.24 MG/DL 0.2-1.3 N code = BILIND) SGOT/AST (test code = 28 Unit/L 15-37 N AST) SGPT/ALT (test code = 30 Unit/L 12-78 N ALT) ALKALINE PHOSPHATASE 76 Unit/L 45-117 N TOTAL (test code = ALKP) INDEX HEMOLYSIS (test 2 TRACE 10-25 MG 1 NORMAL code = HEMINDEX) Index/DL INDEX ICTERIC (test code 1 NORMAL <2 MG 1 NORMAL = ICTINDEX) Index/DL INDEX LIPEMIA (test code 1 NORMAL <50 MG 1 NORMAL = LIPINDEX) Index/DL Specimen comments: Prior to Remdesivir dosingCREATININE W ESTIMATED GFR 2020-03-25 18:12:00 Test Item Value Reference Range Interpretation Comments ESTIMATED 77.76 est 85.0-125.0 L The estimated c reatinine CREATININE CRCL clearance is co mputed CLEARANCE (test using patien tweight, age, code = sex, and serum CREATCLEST) creatinine. Est imated creatinineclear ance units = ml/min. If an y of the needed dataelem ents are missing the Lab oratory can not compute anestimation of the creatinine diogo jadyn.--- DRUG DOSAGE TAVO RT --- Drug dosage adj ustments utilize differe nt calculationpara meters. GLOMERULAR 81 estGFR >60 The estimated g lomerular FILTRATION RATE filtration r ate is (test code = GFR) computed u singpatient race, age, sex, and serum creatinine. If any of theneeded data elements are missing the Laboratory can notcompute an estimation o f the glomerular filt ration rate.The GFR va lue units = ml/min/1.73 m eter squared. Estima tedGFR values above 60 should be interpreted as >60, not anexact number. --- DRUG DOSAGE ALERT -- - Drug dosage adjustme nts utilize differe nt calculationpara meters. CREATININE (test 0.91 MG/DL 0.55-1.30 N Results may be depressed code = CREAT) if patient is takingN-Acetylc ysteine (NAC) and Metam izole (Dipyrone). Specimen comments: Prior to Remdesivir dosingHEPATIC FUNCTION [id number] 18:10:00 Test Item Value Reference Range Interpretation Comments TOTAL PROTEIN (test code G/DL 6.4-8.2 = PROT) ALBUMIN (test code = ALB) 2.7 G/DL 3.4-5.0 L BILIRUBIN TOTAL (test MG/DL 0.00-1.00 code = BILT) BILIRUBIN DIRECT (test < 0.10 MG/DL 0.00-0.30 N code = BILD) BILIRUBIN INDIRECT (test MG/DL 0.2-1.3 code = BILIND) SGOT/AST (test code = 28 Unit/L 15-37 N AST) SGPT/ALT (test code = 30 Unit/L 12-78 N ALT) ALKALINE PHOSPHATASE Unit/L 45-117 TOTAL (test code = ALKP) INDEX HEMOLYSIS (test 2 TRACE 10-25 MG 1 NORMAL code = HEMINDEX) Index/DL INDEX ICTERIC (test code 1 NORMAL <2 MG 1 NORMAL = ICTINDEX) Index/DL INDEX LIPEMIA (test code 1 NORMAL <50 MG 1 NORMAL = LIPINDEX) Index/DL Specimen comments: Prior to Remdesivir dosingCREATININE W ESTIMATED GFR 2020-03-25 18:10:00 Test Item Value Reference Range Interpretation Comments ESTIMATED 77.76 est 85.0-125.0 L The estimated c reatinine CREATININE CRCL clearance is co mputed CLEARANCE (test using patien tweight, age, code = sex, and serum CREATCLEST) creatinine. Est imated creatinineclear ance units = ml/min. If an y of the needed dataelem ents are missing the Lab oratory can not compute anestimation of the creatinine diogo jadyn.--- DRUG DOSAGE TAVO RT --- Drug dosage adj ustments utilize differe nt calculationpara meters. GLOMERULAR 81 estGFR >60 The estimated g lomerular FILTRATION RATE filtration r ate is (test code = GFR) computed u singpatient race, age, sex, and serum creatinine. If any of theneeded data elements are missing the Laboratory can notcompute an estimation o f the glomerular filt ration rate.The GFR va lue units = ml/min/1.73 m eter squared. Estima tedGFR values above 60 should be interpreted as >60, not anexact number. --- DRUG DOSAGE ALERT -- - Drug dosage adjustme nts utilize differe nt calculationpara meters. CREATININE (test 0.91 MG/DL 0.55-1.30 N Results may be depressed code = CREAT) if patient is takingN-Acetylc ysteine (NAC) and Metam izole (Dipyrone). Specimen comments: Prior to Remdesivir dosingEMERGENCY ROOM [id number] 08:40:00 Test Item Value Reference Range Interpretation Comments DIAGNOSIS (test code = SPECIMENS RCVED RECEIVED DIAG) SPECIMEN COMPREHENSIVE METABOLIC [id number] 06:32:00 Test Item Value Reference Range Interpretation Comments SODIUM (test code = 132.0 mmol/L 133-144 L NA) POTASSIUM (test code 4.3 mmol/L 3.5-5.1 N = K) CHLORIDE (test code 103 mmol/L 95-105 N = CL) CARBON DIOXIDE (test 24 mmol/L 21-32 N code = CO2) ANION GAP (test code 5.0 GAP calc 4.0-15.0 N = GAP) GLUCOSE (test code = 154 MG/DL 70-110 H GLU) BLOOD UREA NITROGEN 15 MG/DL 7-18 N (test code = BUN) GLOMERULAR 99 estGFR >60 The estimated FILTRATION RATE glomerular (test code = GFR) filtration rate is computed usingpatient ra ce, age, sex, and s anselmo creatinine. If any of theneeded da ta elements are mi ssing the Laboratory can notcompute an estimation of t he glomerular filtration rate .The GFR value units = ml/min/1.73 met er squared. EstimatedGFR va lues above 60 should be interpreted as >60, not anexact number.--- DRUG DOSAGE ALERT -- - Drug dosage adjustments uti lize different calculationpara meter s. CREATININE (test 0.77 MG/DL 0.55-1.30 N Results may be code = CREAT) depressed if p atient is takingN-Acetylc ystei ne (NAC) and Metamizole (Dipyrone). TOTAL PROTEIN (test 6.8 G/DL 6.4-8.2 N code = PROT) ALBUMIN (test code = 2.7 G/DL 3.4-5.0 L ALB) ALBUMIN/GLOBULIN 0.7 RATIO 1.2-2.2 L RATIO (test code = A/G) CALCIUM (test code = 8.1 MG/DL 8.5-10.1 L CA) BILIRUBIN TOTAL 0.28 MG/DL 0.00-1.00 N (test code = BILT) BILIRUBIN DIRECT 0.17 MG/DL 0.00-0.30 N (test code = BILD) BILIRUBIN INDIRECT 0.11 MG/DL 0.2-1.3 L (test code = BILIND) SGOT/AST (test code 23 Unit/L 15-37 N = AST) SGPT/ALT (test code 24 Unit/L 12-78 N = ALT) ALKALINE PHOSPHATASE 73 Unit/L 45-117 N TOTAL (test code = ALKP) INDEX HEMOLYSIS 1 NORMAL <10 1 NORMAL (test code = MG Index/DL HEMINDEX) INDEX ICTERIC (test 1 NORMAL <2 MG 1 NORMAL code = ICTINDEX) Index/DL INDEX LIPEMIA (test 1 NORMAL <50 1 NORMAL code = LIPINDEX) MG Index/DL COMPREHENSIVE METABOLIC [id number] 06:29:00 Test Item Value Reference Range Interpretation Comments SODIUM (test code = 132.0 mmol/L 133-144 L NA) POTASSIUM (test code 4.3 mmol/L 3.5-5.1 N = K) CHLORIDE (test code 103 mmol/L 95-105 N = CL) CARBON DIOXIDE (test 24 mmol/L 21-32 N code = CO2) ANION GAP (test code 5.0 GAP calc 4.0-15.0 N = GAP) GLUCOSE (test code = 154 MG/DL 70-110 H GLU) BLOOD UREA NITROGEN 15 MG/DL 7-18 N (test code = BUN) GLOMERULAR 99 estGFR >60 The estimated FILTRATION RATE glomerular (test code = GFR) filtration rate is computed usingpatient ra ce, age, sex, and s anselmo creatinine. If any of theneeded da ta elements are mi ssing the Laboratory can notcompute an estimation of t he glomerular filtration rate .The GFR value units = ml/min/1.73 met er squared. EstimatedGFR va lues above 60 should be interpreted as >60, not anexact number.--- DRUG DOSAGE ALERT -- - Drug dosage adjustments uti lize different calculationpara meter s. CREATININE (test 0.77 MG/DL 0.55-1.30 N Results may be code = CREAT) depressed if p atient is takingN-Acetylc ystei ne (NAC) and Metamizole (Dipyrone). TOTAL PROTEIN (test G/DL 6.4-8.2 code = PROT) ALBUMIN (test code = 2.7 G/DL 3.4-5.0 L ALB) ALBUMIN/GLOBULIN RATIO 1.2-2.2 RATIO (test code = A/G) CALCIUM (test code = 8.1 MG/DL 8.5-10.1 L CA) BILIRUBIN TOTAL MG/DL 0.00-1.00 (test code = BILT) BILIRUBIN DIRECT 0.17 MG/DL 0.00-0.30 N (test code = BILD) BILIRUBIN INDIRECT MG/DL 0.2-1.3 (test code = BILIND) SGOT/AST (test code 23 Unit/L 15-37 N = AST) SGPT/ALT (test code Unit/L 12-78 = ALT) ALKALINE PHOSPHATASE Unit/L 45-117 TOTAL (test code = ALKP) INDEX HEMOLYSIS 1 NORMAL <10 1 NORMAL (test code = MG Index/DL HEMINDEX) INDEX ICTERIC (test 1 NORMAL <2 MG 1 NORMAL code = ICTINDEX) Index/DL INDEX LIPEMIA (test 1 NORMAL <50 1 NORMAL code = LIPINDEX) MG Index/DL CBC W/AUTO [id number] 06:17:00 Test Item Value Reference Range Interpretation Comments WHITE BLOOD CELL (test code = 2.6 K/mm3 4.1-12.1 L WBC) RED BLOOD CELL (test code = RBC) 4.58 M/mm3 3.8-5.5 N HEMOGLOBIN (test code = HGB) 13.5 G/DL 10.6-15.8 N HEMATOCRIT (test code = HCT) 41.7 % 31.8-47.4 N MEAN CELL VOLUME (test code = 91.0 fL 80.1-101.1 N MCV) MEAN CELL HGB (test code = MCH) 29.5 pg 25.3-35.3 N MEAN CELL HGB CONCETRATION (test 32.4 G/DL 32.7-35.1 L code = MCHC) RED CELL DISTRIBUTION WIDTH 13.3 % 12.2-16.4 N (test code = RDW) RED CELL DISTRIBUTION WIDTH 44.6 fL 35.1-43.9 H (test code = RDW-SD) PLATELET COUNT (test code = PLT) 176 K/mm3 155-337 N MEAN PLATELET VOLUME (test code 11.0 fL 7.6-10.4 H = MPV) GRANULOCYTE % (test code = GR%) 73.1 % 37.8-82.6 N IMMATURE GRANULOCYTE % (test 0.8 % 0.0-2.0 N code = IG%) LYMPHOCYTE % (test code = LY%) 22.3 % 14.1-45.4 N MONOCYTE % (test code = MO%) 3.8 % 2.5-11.7 N EOSINOPHIL % (test code = EO%) 0.0 % 0.0-6.2 N BASOPHIL % (test code = BA%) 0.0 % 0.0-2.6 N NUCLEATED RBC % (test code = 0.0 /100WBC% 0.0-1.0 N NRBC%) GRANULOCYTE # (test code = GR#) 1.90 k/mm3 2.0-13.7 L IMMATURE GRANULOCYTE # (test 0.02 K/mm3 0.00-0.03 N code = IG#) LYMPHOCYTE # (test code = LY#) 0.58 K/mm3 0.6-3.8 L MONOCYTE # (test code = MO#) 0.10 K/mm3 0.11-0.59 L EOSINOPHIL # (test code = EO#) 0.00 K/mm3 0.0-0.4 N BASOPHIL # (test code = BA#) 0.00 K/mm3 0.0-0.1 N NUCLEATED RBC # (test code = 0.00 K/mm3 0.00-0.05 N NRBC#) [id number] 06:12:00 Test Item Value Reference Range Interpretation Comments D-DIMER (test 1101 FEUng/mL 0-500 H THE CUT-OFF V ALUE FOR code = DDIMER) EXCLUSION OF VTE = 500 FEU ng/mLNOTE: This method must be used with additional test s in theevaluation o f VTE and should not be u sed to exclude VTE wit hpretest probability melani ne. COVID 19 Asymptomatic IH [id number] 22:44:00 Test Item Value Reference Range Interpretation Comments COVID 19 Asymptomatic IH Positive Neg A ON 03/24/20 AT 2242, AG (test code = B.LAB.CA REYNALDO LED TO COVNONPUIAG) Rudy Kennedy. The report was conf irmed by read back protocols Y,N: Y. - CTA CHEST FOR [id number] 14:22:00 Patient Name: PRAMOD ANG Unit No: [id number] EXAMS: CPT CODE: [id number] CTA CHEST FOR [id number] Site ID: [id number] EXAMINATION: CTA chest. Technique: Axial images with coronal and sagittal reconstructions with MIP technique are performed of chest with angiogram protocol. 100 mL of Isovue-300 administered intravenously. One or more of the following radiation dose reduction techniques was used: automated exposure control, adjustment of mA and/or KV according to patient size, and/or utilization of iterative reconstruction technique. HISTORY: pain, short breath, tachycardia, covid+. COMPARISON: None. FINDINGS: The pulmonary arteries are well-opacified with no filling defects to suggest pulmonary embolism. Some of the branches particularly subsegmental branches are less than optimally evaluateddue to breathing motion artifact. The thoracic aorta is normal in caliber. There is no dissection. Coronary artery calcifications are seen. The heart size is normal. No pericardial effusion. No pleuraleffusion. No mediastinal mass or significant lymphadenopathy. The lungs demonstrate patchy groundglass opacities involving mostly the mid and lower lung zones, more on the right side which may relate to atypical pneumonia. Sections in the upper abdomen appear grossly unremarkable. The osseous structures demonstrate degenerative changes in the thoracic spine. IMPRESSION: 1. No pulmonary embolism. 2. Patchy groundglass opacities in the lungs suggestive of atypical pneumonia. at 1422 Reported and signed by: Juan Antonio Matta CC: Norm Bradford DO Dictated Date/Time: 03/24/2020 (1421) Technologist: Shanell Rodriguez CTDI: 7.63 DLP: 296.45 BUDDY Singh NAME: [address] PHYS: ERMIAS. - [place] [id number] : 1945 AGE: 75 SEX: M LOC: B.ERS PHONE #: [phone] EXAM DATE: 03/24/2020 STATUS: REG ER FAX #: [phone] RAD #: D/C DT PAGE 1 Signed Report Patient Name: PRAMOD ANG Unit No: [id number] EXAMS: CPT CODE: [id number] [place] [address](Continued) Trnscrpt: 03/24/2020 (1421) Gerardo Singh NAME: PRAMOD ANG [address] PHYS: ERMIAS. - SanchezSaminaNormmartinez [place] [id number] : 1945 AGE: 75 SEX: M LOC: B.ERS PHONE #: [phone] EXAM DATE: 03/24/2020 STATUS: REG ER FAX #: [phone] RAD #: D/C DT PAGE 2 Signed ReportCOMPREHENSIVE METABOLIC PANEL 2020-03-24 13:26:00 Test Item Value Reference Range Interpretation Comments SODIUM (test code = 130.0 mmol/L 133-144 L NA) POTASSIUM (test code 4.0 mmol/L 3.5-5.1 N = K) CHLORIDE (test code 99 mmol/L 95-105 N = CL) CARBON DIOXIDE (test 24 mmol/L 21-32 N code = CO2) ANION GAP (test code 7.0 GAP calc 4.0-15.0 N = GAP) GLUCOSE (test code = 107 MG/DL 70-110 N GLU) BLOOD UREA NITROGEN 10 MG/DL 7-18 N (test code = BUN) GLOMERULAR 78 estGFR >60 The estimated FILTRATION RATE glomerular (test code = GFR) filtration rate is computed usingpatient ra ce, age, sex, and s anselmo creatinine. If any of theneeded da ta elements are mi ssing the Laboratory can notcompute an estimation of t he glomerular filtration rate .The GFR value units = ml/min/1.73 met er squared. EstimatedGFR va lues above 60 should be interpreted as >60, not anexact number.--- DRUG DOSAGE ALERT -- - Drug dosage adjustments uti lize different calculationpara meter s. CREATININE (test 0.94 MG/DL 0.55-1.30 N Results may be code = CREAT) depressed if p atient is takingN-Acetylc ystei ne (NAC) and Metamizole (Dipyrone). TOTAL PROTEIN (test 7.3 G/DL 6.4-8.2 N code = PROT) ALBUMIN (test code = 2.9 G/DL 3.4-5.0 L ALB) ALBUMIN/GLOBULIN 0.7 RATIO 1.2-2.2 L RATIO (test code = A/G) CALCIUM (test code = 8.1 MG/DL 8.5-10.1 L CA) BILIRUBIN TOTAL 0.42 MG/DL 0.00-1.00 N (test code = BILT) BILIRUBIN DIRECT 0.16 MG/DL 0.00-0.30 N (test code = BILD) BILIRUBIN INDIRECT 0.26 MG/DL 0.2-1.3 N (test code = BILIND) SGOT/AST (test code 37 Unit/L 15-37 N = AST) SGPT/ALT (test code 29 Unit/L 12-78 N = ALT) ALKALINE PHOSPHATASE 74 Unit/L 45-117 N TOTAL (test code = ALKP) INDEX HEMOLYSIS 2 TRACE 10-25 1 NORMAL (test code = MG Index/DL HEMINDEX) INDEX ICTERIC (test 1 NORMAL <2 MG 1 NORMAL code = ICTINDEX) Index/DL INDEX LIPEMIA (test 1 NORMAL <50 1 NORMAL code = LIPINDEX) MG Index/DL [id number] 13:26:00 Test Item Value Reference Range Interpretation Comments MAGNESIUM (test code = MAG) 2.1 MG/DL 1.6-2.6 N COMPREHENSIVE METABOLIC [id number] 13:13:00 Test Item Value Reference Range Interpretation Comments SODIUM (test code = 130.0 mmol/L 133-144 L NA) POTASSIUM (test code 4.0 mmol/L 3.5-5.1 N = K) CHLORIDE (test code 99 mmol/L 95-105 N = CL) CARBON DIOXIDE (test 24 mmol/L 21-32 N code = CO2) ANION GAP (test code 7.0 GAP calc 4.0-15.0 N = GAP) GLUCOSE (test code = 107 MG/DL 70-110 N GLU) BLOOD UREA NITROGEN 10 MG/DL 7-18 N (test code = BUN) GLOMERULAR 78 estGFR >60 The estimated FILTRATION RATE glomerular (test code = GFR) filtration rate is computed usingpatient ra ce, age, sex, and s anselmo creatinine. If any of theneeded da ta elements are mi ssing the Laboratory can notcompute an estimation of t he glomerular filtration rate .The GFR value units = ml/min/1.73 met er squared. EstimatedGFR va lues above 60 should be interpreted as >60, not anexact number.--- DRUG DOSAGE ALERT -- - Drug dosage adjustments uti lize different calculationpara meter s. CREATININE (test 0.94 MG/DL 0.55-1.30 N Results may be code = CREAT) depressed if p atient is takingN-Acetylc ystei ne (NAC) and Metamizole (Dipyrone). TOTAL PROTEIN (test G/DL 6.4-8.2 code = PROT) ALBUMIN (test code = 2.9 G/DL 3.4-5.0 L ALB) ALBUMIN/GLOBULIN RATIO 1.2-2.2 RATIO (test code = A/G) CALCIUM (test code = 8.1 MG/DL 8.5-10.1 L CA) BILIRUBIN TOTAL MG/DL 0.00-1.00 (test code = BILT) BILIRUBIN DIRECT 0.16 MG/DL 0.00-0.30 N (test code = BILD) BILIRUBIN INDIRECT MG/DL 0.2-1.3 (test code = BILIND) SGOT/AST (test code 37 Unit/L 15-37 N = AST) SGPT/ALT (test code 29 Unit/L 12-78 N = ALT) ALKALINE PHOSPHATASE Unit/L 45-117 TOTAL (test code = ALKP) INDEX HEMOLYSIS 2 TRACE 10-25 1 NORMAL (test code = MG Index/DL HEMINDEX) INDEX ICTERIC (test 1 NORMAL <2 MG 1 NORMAL code = ICTINDEX) Index/DL INDEX LIPEMIA (test 1 NORMAL <50 1 NORMAL code = LIPINDEX) MG Index/DL [id number] 13:13:00 Test Item Value Reference Range Interpretation Comments MAGNESIUM (test code = MAG) 2.1 MG/DL 1.6-2.6 N PT AND [id number] 13:09:00 Test Item Value Reference Interpretation Comments Range PT PATIENT (test 13.3 SECONDS 9.4-12.5 H code = PTP) INTERNATIONAL 1.15 INR 0.88-1.13 H NORMAL RATIO (test Unit --------- code = INR) ---------Therap eutic range for INR i s dependent upon the situation.2.0-3 .0 Prophylaxis / v enous thromboembolism , Treatment of DV T, Acute myocardial infa rction stroke preventi on, Systemic emboli sm prevention in fibrillation3.0 -4.5 AMI recurrence prev ention, Systemic emboli sm prevention in p rosthetic heart 3.0-5.4 A MS mortality reduc tion THROMBOPLASTIN TIME 38.5 SECONDS 24-37.7 H THERAPEU TIC RANGE FOR PARTIAL (test code UNFRACTIO NATED HEPARIN = = PTT) 50.5-83.6 SEC T his test is not recommen ded to monitor low molecularweight heparin or danaparoid. Order LMWH test COLLECTION THROUGH LINES THAT HAVE BEEN PREVIOUSLY FLUS HEDWITH HEPARIN SHOULD BE AVOIDED DUE TO POSSIBLE HEPARINCONTAMIN ATION TROPONIN I [id number] 13:03:00 Test Item Value Reference Range Interpretation Comments TROPONIN I RAPID 0.01 NG/ML 0.00-0.07 N An elevated troponin value (test code = alone is not cureil fficient TROPIRAP) todiagnose a my ocardial infarction. Rat her, the patient'sclinic al presentation (h istory, physical exam) and ECGshould be us ed in conjunction wit h troponin in thediagnosti c evaluation of suspected my ocardial infarction. Ase rial sampling protoc ol is recommended to facilitate theidentificati on of temporal change s in troponin levelscharacter istic of MS. CBC W/AUTO [id number] 12:59:00 Test Item Value Reference Range Interpretation Comments WHITE BLOOD CELL (test code = 4.8 K/mm3 4.1-12.1 N WBC) RED BLOOD CELL (test code = RBC) 4.78 M/mm3 3.8-5.5 N HEMOGLOBIN (test code = HGB) 14.4 G/DL 10.6-15.8 N HEMATOCRIT (test code = HCT) 45.9 % 31.8-47.4 N MEAN CELL VOLUME (test code = 96.0 fL 80.1-101.1 N MCV) MEAN CELL HGB (test code = MCH) 30.1 pg 25.3-35.3 N MEAN CELL HGB CONCETRATION (test 31.4 G/DL 32.7-35.1 L code = MCHC) RED CELL DISTRIBUTION WIDTH 13.3 % 12.2-16.4 N (test code = RDW) RED CELL DISTRIBUTION WIDTH 47.6 fL 35.1-43.9 H (test code = RDW-SD) PLATELET COUNT (test code = PLT) 166 K/mm3 155-337 N MEAN PLATELET VOLUME (test code 10.6 fL 7.6-10.4 H = MPV) GRANULOCYTE % (test code = GR%) 79.7 % 37.8-82.6 N IMMATURE GRANULOCYTE % (test 0.4 % 0.0-2.0 N code = IG%) LYMPHOCYTE % (test code = LY%) 13.5 % 14.1-45.4 L MONOCYTE % (test code = MO%) 6.2 % 2.5-11.7 N EOSINOPHIL % (test code = EO%) 0.0 % 0.0-6.2 N BASOPHIL % (test code = BA%) 0.2 % 0.0-2.6 N NUCLEATED RBC % (test code = 0.0 /100WBC% 0.0-1.0 N NRBC%) GRANULOCYTE # (test code = GR#) 3.83 k/mm3 2.0-13.7 N IMMATURE GRANULOCYTE # (test 0.02 K/mm3 0.00-0.03 N code = IG#) LYMPHOCYTE # (test code = LY#) 0.65 K/mm3 0.6-3.8 N MONOCYTE # (test code = MO#) 0.30 K/mm3 0.11-0.59 N EOSINOPHIL # (test code = EO#) 0.00 K/mm3 0.0-0.4 N BASOPHIL # (test code = BA#) 0.01 K/mm3 0.0-0.1 N NUCLEATED RBC # (test code = 0.00 K/mm3 0.00-0.05 N NRBC#) BLOOD BANK [id number] 13:47:00 Test Item Value Reference Range Interpretation Comments Antibody Scrn (test Negative (08/28/16 7:47 code = Antibody Scrn) AM) [facility] [employer] BANK [id number] 13:47:00 Test Item Value Reference Range Interpretation Comments ABO/Rh (test code = ABO/Rh) O NEG [employer] [id number] 13:47:00 Test Item Value Reference Range Interpretation Comments Magnesium Lvl (test code = Magnesium 1.8 1.8-2.4 Lvl) [employer] [id number] 13:47:00 Test Item Value Reference Range Interpretation Comments A/G Ratio (test code = A/G Ratio) 1.1 0.7-1.6 [employer] [id number] 13:47:00 Test Item Value Reference Range Interpretation Comments B/C Ratio (test code = B/C Ratio) 16 6-25 [employer] [id number] 13:47:00 Test Item Value Reference Range Interpretation Comments Globulin (test code = Globulin) 3.4 2.7-4.2 [facility]2017-01-16 13:47:00 Test Item Value Reference Range Interpretation Comments AGAP (test code = AGAP) 12.1 10.0-20.0 [facility]2017-01-16 13:47:00 Test Item Value Reference Range Interpretation Comments eGFR (test code = eGFR) 88 [facility]2017-01-16 13:47:00 Test Item Value Reference Range Interpretation Comments Albumin Lvl (test code = Albumin Lvl) 3.8 3.5-5.0 [facility]2017-01-16 13:47:00 Test Item Value Reference Range Interpretation Comments ALT (test code = ALT) 21 See_Comment [Auto mated message] The system which ge nerated this result transmit tierra reference range : <=65. The reference range was not used to interpr et this result as opal l/abnormal. [facility]2017-01-16 13:47:00 Test Item Value Reference Range Interpretation Comments Alk Phos (test code = Alk Phos) 81 39-136 [facility]2017-01-16 13:47:00 Test Item Value Reference Range Interpretation Comments BUN (test code = BUN) 14 7-22 [facility]2017-01-16 13:47:00 Test Item Value Reference Range Interpretation Comments Glucose Lvl (test code = Glucose Lvl) 114 70-99 [facility]2017-01-16 13:47:00 Test Item Value Reference Range Interpretation Comments Sodium Lvl (test code = Sodium Lvl) 140 135-145 [facility]2017-01-16 13:47:00 Test Item Value Reference Range Interpretation Comments Creatinine Lvl (test code = Creatinine 0.85 0.50-1.40 Lvl) [facility]2017-01-16 13:47:00 Test Item Value Reference Range Interpretation Comments Potassium Lvl (test code = Potassium 4.1 3.5-5.1 Lvl) [facility]2017-01-16 13:47:00 Test Item Value Reference Range Interpretation Comments CO2 (test code = CO2) 27 24-32 [place] [id number] 13:47:00 Test Item Value Reference Range Interpretation Comments Calcium Lvl (test code = Calcium Lvl) 8.6 8.5-10.5 [facility]2017-01-16 13:47:00 Test Item Value Reference Range Interpretation Comments Chloride Lvl (test code = Chloride Lvl) 105 95-109 [facility]2017-01-16 13:47:00 Test Item Value Reference Range Interpretation Comments Bili Total (test code = Bili Total) 0.6 0.2-1.3 [facility]2017-01-16 13:47:00 Test Item Value Reference Range Interpretation Comments AST (test code = AST) 20 See_Comment [Auto mated message] The system which ge nerated this result transmit tierra reference range : <=37. The reference range was not used to interpr et this result as opal l/abnormal. [facility]2017-01-16 13:47:00 Test Item Value Reference Range Interpretation Comments Total Protein (test code = Total 7.2 6.4-8.4 Protein) [id number] 13:47:00 Test Item Value Reference Range Interpretation Comments RDW (test code = RDW) 14.0 11.5-14.5 [id number] 13:47:00 Test Item Value Reference Range Interpretation Comments MCHC (test code = MCHC) 33.7 32.0-36.0 [facility] BrownwoodRsmbwecMUANKUWZFL0989-40-58 13:47:00 Test Item Value Reference Range Interpretation Comments MPV (test code = MPV) 9.2 7.4-10.4 [facility] B[id number] 13:47:00 Test Item Value Reference Range Interpretation Comments Platelet (test code = Platelet) 212 133-450 [facility] BrownwoodOvcyxvdJXJCEHILHQ9041-16-54 13:47:00 Test Item Value Reference Range Interpretation Comments WBC (test code = WBC) 5.2 3.7-10.4 [facility] Brownwo[id number] 13:47:00 Test Item Value Reference Range Interpretation Comments Hgb (test code = Hgb) 14.1 14.0-18.0 [facility] BrownwoodRgawosxNISVXQABXV5609-21-91 13:47:00 Test Item Value Reference Range Interpretation Comments MCH (test code = MCH) 30.1 pg 27.0-31.0 [facility] BrownwoodZsxcwoqTSINWQIPKU5368-27-07 13:47:00 Test Item Value Reference Range Interpretation Comments RBC (test code = RBC) 4.67 4.70-6.10 [facility] BrownwoodYerkckfRVFYCZCOZR9547-41-31 13:47:00 Test Item Value Reference Range Interpretation Comments Hct (test code = Hct) 41.7 42.0-54.0 [facility] BrownwoodYguignmZHHOAGUHDD8582-56-31 13:47:00 Test Item Value Reference Range Interpretation Comments MCV (test code = MCV) 89.3 80.0-94.0 [facility] BrownwoodZkmyqmkDNJLBVKMBR9055-70-62 13:47:00 Test Item Value Reference Range Interpretation Comments INR (test code = INR) 1.04 0.85-1.17 [facility] BrownwoodUvwhmnzANQOUMOCUR1896-03-10 13:47:00 Test Item Value Reference Range Interpretation Comments PT (test code = PT) 13.8 s 12.0-14.7 [facility] BrownwoodClpdpeuHAWNYTVTLX1144-17-97 13:47:00 Test Item Value Reference Range Interpretation Comments PTT (test code = PTT) 29.6 s 22.9-35.8 [facility] BrownwoodDdtrsvgLQPXBZBYIR0357-66-99 13:47:00 Test Item Value Reference Range Interpretation Comments Monocytes (test code = Monocytes) 9.2 2.0-12.0 [facility] BrownwoodMusrsuwNBOLNVPVOY6856-93-24 13:47:00 Test Item Value Reference Range Interpretation Comments Segs-Bands # (test code = Segs-Bands #) 2.8 1.5-8.1 [facility] BrownwoodVzlhonsVNXESAMUSB4616-36-86 13:47:00 Test Item Value Reference Range Interpretation Comments Basophils (test code = 0.7 See_Comment [Aut omated message] The Basophils) system which ge nerated this result tra nsmitted reference range : <=1.0. The reference r noris was not used to int erpret this result as normal/abnormal . [facility] BrownwoodSmjaksyEIBBQZPDFR8773-49-12 13:47:00 Test Item Value Reference Range Interpretation Comments Lymphocytes # (test code = Lymphocytes 1.6 1.0-5.5 #) [facility] BrownwoodYzmunbyJRPODDOOGI9892-22-76 13:47:00 Test Item Value Reference Range Interpretation Comments Eosinophils (test code = 5.8 See_Comment [A utomated message] The Eosinophils) system which ge nerated this result tra nsmitted reference range : <=4.0. The reference r noris was not used to int erpret this result as normal/abnormal . [facility] GmjxmrnZWORZNFNMX1563-79-50 13:47:00 Test Item Value Reference Range Interpretation Comments Lymphocytes (test code = Lymphocytes) 30.3 20.0-40.0 [facility] BrownwoodHcvopufORXMGWULWO8316-01-00 13:47:00 Test Item Value Reference Range Interpretation Comments Segs (test code = Segs) 54.0 45.0-75.0 [facility] CenterMdqjifvVHUIFIJLSG4191-11-10 13:47:00 Test Item Value Reference Range Interpretation Comments Monocytes # (test code 0.5 See_Comment [Aut omated message] The = Monocytes #) system which generated this result tra nsmitted reference range : <=0.8. The reference r noris was not used to int erpret this result as normal/abnormal . [facility]lam[facility]RTBCYISTTD5642-[facility] 13:47:00 Test Item Value Reference Range Interpretation Comments Eosinophils # (test code 0.3 See_Comment [A utomated message] The = Eosinophils #) system whic h generated this result tra nsmitted reference range : <=0.5. The reference r noris was not used to int erpret this result as normal/abnormal . [facility] [id number] 13:47:00 Test Item Value Reference Range Interpretation Comments Antibody Scrn (test Negative (08/28/16 7:47 code = Antibody Scrn) AM) [facility] [id number] 13:47:00 Test Item Value Reference Range Interpretation Comments ABO/Rh (test code = ABO/Rh) O NEG [facility] [id number] 13:47:00 Test Item Value Reference Range Interpretation Comments Magnesium Lvl (test code = Magnesium 1.8 1.8-2.4 Lvl) [facility] [id number] 13:47:00 Test Item Value Reference Range Interpretation Comments A/G Ratio (test code = A/G Ratio) 1.1 0.7-1.6 [facility] [id number] 13:47:00 Test Item Value Reference Range Interpretation Comments B/C Ratio (test code = B/C Ratio) 16 6-25 [facility] [id number] 13:47:00 Test Item Value Reference Range Interpretation Comments Globulin (test code = Globulin) 3.4 2.7-4.2 [facility]2017-01-16 13:47:00 Test Item Value Reference Range Interpretation Comments AGAP (test code = AGAP) 12.1 10.0-20.0 [facility]2017-01-16 13:47:00 Test Item Value Reference Range Interpretation Comments eGFR (test code = eGFR) 88 [facility]2017-01-16 13:47:00 Test Item Value Reference Range Interpretation Comments Albumin Lvl (test code = Albumin Lvl) 3.8 3.5-5.0 [facility]2017-01-16 13:47:00 Test Item Value Reference Range Interpretation Comments ALT (test code = ALT) 21 See_Comment [Auto mated message] The system which ge nerated this result transmit tierra reference range : <=65. The reference range was not used to interpr et this result as opal l/abnormal. [facility]2017-01-16 13:47:00 Test Item Value Reference Range Interpretation Comments Alk Phos (test code = Alk Phos) 81 39-136 [facility]2017-01-16 13:47:00 Test Item Value Reference Range Interpretation Comments BUN (test code = BUN) 14 7-22 [facility]2017-01-16 13:47:00 Test Item Value Reference Range Interpretation Comments Glucose Lvl (test code = Glucose Lvl) 114 70-99 [facility]2017-01-16 13:47:00 Test Item Value Reference Range Interpretation Comments Sodium Lvl (test code = Sodium Lvl) 140 135-145 [facility]2017-01-16 13:47:00 Test Item Value Reference Range Interpretation Comments Creatinine Lvl (test code = Creatinine 0.85 0.50-1.40 Lvl) [facility]2017-01-16 13:47:00 Test Item Value Reference Range Interpretation Comments Potassium Lvl (test code = Potassium 4.1 3.5-5.1 Lvl) [facility]2017-01-16 13:47:00 Test Item Value Reference Range Interpretation Comments CO2 (test code = CO2) 27 24-32 [facility]2017-01-16 13:47:00 Test Item Value Reference Range Interpretation Comments Calcium Lvl (test code = Calcium Lvl) 8.6 8.5-10.5 [facility]2017-01-16 13:47:00 Test Item Value Reference Range Interpretation Comments Chloride Lvl (test code = Chloride Lvl) 105 95-109 [facility]2017-01-16 13:47:00 Test Item Value Reference Range Interpretation Comments Bili Total (test code = Bili Total) 0.6 0.2-1.3 [facility]2017-01-16 13:47:00 Test Item Value Reference Range Interpretation Comments AST (test code = AST) 20 See_Comment [Auto mated message] The system which ge nerated this result transmit tierra reference range : <=37. The reference range was not used to interpr et this result as opal l/abnormal. [facility]2017-01-16 13:47:00 Test Item Value Reference Range Interpretation Comments Total Protein (test code = Total 7.2 6.4-8.4 Protein) [facility] BrownwoodHtwocpfGWXXBRPHRI6281-59-57 13:47:00 Test Item Value Reference Range Interpretation Comments RDW (test code = RDW) 14.0 11.5-14.5 [facility] BrownwoodAvpbbevAXQIORWJWU4654-64-99 13:47:00 Test Item Value Reference Range Interpretation Comments MCHC (test code = MCHC) 33.7 32.0-36.0 [facility] BrownwoodJjxxbrlWHSWZVHAVF2982-61-92 13:47:00 Test Item Value Reference Range Interpretation Comments MPV (test code = MPV) 9.2 7.4-10.4 [facility] BrownwoodWpfjyxcGOMDVIKSBF8718-15-14 13:47:00 Test Item Value Reference Range Interpretation Comments Platelet (test code = Platelet) 212 133-450 [facility] BrownwoodLtkmyesXRTABFKGVJ9304-97-21 13:47:00 Test Item Value Reference Range Interpretation Comments WBC (test code = WBC) 5.2 3.7-10.4 [facility] BrownwoodIprnqjhDNGGAIQTGQ9540-94-11 13:47:00 Test Item Value Reference Range Interpretation Comments Hgb (test code = Hgb) 14.1 14.0-18.0 [facility] BrownwoodHmxrihaEJBPHGFRTG9181-09-96 13:47:00 Test Item Value Reference Range Interpretation Comments MCH (test code = MCH) 30.1 pg 27.0-31.0 [facility] BrownwoodQqghsjjJCLBTUIYHS5535-29-78 13:47:00 Test Item Value Reference Range Interpretation Comments RBC (test code = RBC) 4.67 4.70-6.10 [facility] BrownwoodQpmanzaPTFGIVMRZT6578-34-93 13:47:00 Test Item Value Reference Range Interpretation Comments Hct (test code = Hct) 41.7 42.0-54.0 [facility] BrownwoodNxcwahjLFBJSNHZFW9884-73-30 13:47:00 Test Item Value Reference Range Interpretation Comments MCV (test code = MCV) 89.3 80.0-94.0 [facility] BrownwoodHccwpvhHJIQSECLFH9155-92-20 13:47:00 Test Item Value Reference Range Interpretation Comments INR (test code = INR) 1.04 0.85-1.17 [facility] BrownwoodQxxnsjtXBCGGECTCU3648-64-65 13:47:00 Test Item Value Reference Range Interpretation Comments PT (test code = PT) 13.8 s 12.0-14.7 [facility] BrownwoodBgozairNVOEDLIRDT2704-64-87 13:47:00 Test Item Value Reference Range Interpretation Comments PTT (test code = PTT) 29.6 s 22.9-35.8 [facility] BrownwoodZfgypjzEBRWMHAVLV4221-17-30 13:47:00 Test Item Value Reference Range Interpretation Comments Monocytes (test code = Monocytes) 9.2 2.0-12.0 [facility] BrownwoodLbzfofsYAFWKNGBPF0053-76-09 13:47:00 Test Item Value Reference Range Interpretation Comments Segs-Bands # (test code = Segs-Bands #) 2.8 1.5-8.1 [facility] BrownwoodVadodoiFCSTHTAXSR9545-05-78 13:47:00 Test Item Value Reference Range Interpretation Comments Basophils (test code = 0.7 See_Comment [Aut omated message] The Basophils) system which ge nerated this result tra nsmitted reference range : <=1.0. The reference r noris was not used to int erpret this result as normal/abnormal . [facility] BrownwoodXtjilweUZZYOIPRAF8691-88-34 13:47:00 Test Item Value Reference Range Interpretation Comments Lymphocytes # (test code = Lymphocytes 1.6 1.0-5.5 #) [facility] BrownwoodGwbngktHOMKOWLOEM3125-04-26 13:47:00 Test Item Value Reference Range Interpretation Comments Eosinophils (test code = 5.8 See_Comment [A utomated message] The Eosinophils) system which ge nerated this result tra nsmitted reference range : <=4.0. The reference r noris was not used to int erpret this result as normal/abnormal . [facility] BrownwoodNsdtqkbSNNYTJJMYU0592-02-90 13:47:00 Test Item Value Reference Range Interpretation Comments Lymphocytes (test code = Lymphocytes) 30.3 20.0-40.0 [facility] BrownwoodBqywxtvICUAVKGSIQ0318-06-00 13:47:00 Test Item Value Reference Range Interpretation Comments Segs (test code = Segs) 54.0 45.0-75.0 [facility] BrownwoodPqytyllDAYDEFKBSB4294-78-38 13:47:00 Test Item Value Reference Range Interpretation Comments Monocytes # (test code 0.5 See_Comment [Aut omated message] The = Monocytes #) system which generated this result tra nsmitted reference range : <=0.8. The reference r noris was not used to int erpret this result as normal/abnormal . [facility] [place]AljkvbyDBGTCZOTYL2297-18-21 13:47:00 Test Item Value Reference Range Interpretation Comments Eosinophils # (test code 0.3 See_Comment [A utomated message] The = Eosinophils #) system whic h generated this result tra nsmitted reference range : <=0.5. The reference r noris was not used to int erpret this result as normal/abnormal . [facility]LHCRZXBLJEKX0261-53-43 08:31:00 Test Item Value Reference Range Interpretation Comments AGAP (test code = AGAP) 12.2 10.0-20.0 [facility]XdzmtbzNLEREVQKXYKI2150-86-08 08:31:00 Test Item Value Reference Range Interpretation Comments eGFR (test code = eGFR) 89 [facility]OibrfgjZQZOQTXJZNPN1623-35-48 08:31:00 Test Item Value Reference Range Interpretation Comments CO2 (test code = CO2) 26 24-32 [facility]BgaoefnLOHFFVIICOIJ8699-00-96 08:31:00 Test Item Value Reference Range Interpretation Comments Calcium Lvl (test code = Calcium Lvl) 8.1 8.5-10.5 [facility]RkuwzuqSNJGCQXZHWBH0115-21-51 08:31:00 Test Item Value Reference Range Interpretation Comments Chloride Lvl (test code = Chloride Lvl) 107 95-109 [facility]ValtjrjDYTNJTPIGQAU8549-32-83 08:31:00 Test Item Value Reference Range Interpretation Comments Sodium Lvl (test code = Sodium Lvl) 141 135-145 [facility]HgoqzkkJHEXMMVEZZTV5052-28-50 08:31:00 Test Item Value Reference Range Interpretation Comments Potassium Lvl (test code = Potassium 4.2 3.5-5.1 Lvl) [facility] HospitalJivjnexMDEQPITFDSEO6411-01-90 08:31:00 Test Item Value Reference Range Interpretation Comments Creatinine Lvl (test code = Creatinine 0.84 0.50-1.40 Lvl) [facility]KudavdsWMOICUZYAQVB5199-12-05 08:31:00 Test Item Value Reference Range Interpretation Comments Glucose Lvl (test code = Glucose Lvl) 124 70-99 [facility] HospitalMricptfRBICLSYHABZW7431-42-11 08:31:00 Test Item Value Reference Range Interpretation Comments BUN (test code = BUN) 9 7-22 [facility] BrownwoodMlxnthzWVROMSNDHB4646-20-28 08:31:00 Test Item Value Reference Range Interpretation Comments MCV (test code = MCV) 97.7 80.0-94.0 [facility] BrownwoodTcqcpwxUKGGFEVQYU2750-38-02 08:31:00 Test Item Value Reference Range Interpretation Comments Hct (test code = Hct) 33.9 42.0-54.0 [facility] BrownwoodGhpwpvxWDBBIZYQEV8622-20-64 08:31:00 Test Item Value Reference Range Interpretation Comments MCHC (test code = MCHC) 31.9 32.0-36.0 [facility] BrownwoodYmbznvuBKXJCBAECT9049-21-10 08:31:00 Test Item Value Reference Range Interpretation Comments MCH (test code = MCH) 31.1 pg 27.0-31.0 [facility] BrownwoodBtterroSZCYVPBXNN9870-20-17 08:31:00 Test Item Value Reference Range Interpretation Comments RDW (test code = RDW) 14.3 11.5-14.5 [facility] BrownwoodIxqdfsjYDHRGBAUNZ9306-50-04 08:31:00 Test Item Value Reference Range Interpretation Comments Platelet (test code = Platelet) 166 133-450 [facility] BrownwoodLnvqltmMYTKFVETPA6076-95-77 08:31:00 Test Item Value Reference Range Interpretation Comments MPV (test code = MPV) 11.4 7.4-10.4 [facility] BrownwoodFlaqtozUBMJNBNGBO2223-34-44 08:31:00 Test Item Value Reference Range Interpretation Comments RBC X 10x6 (test code = RBC X 10x6) 3.47 4.70-6.10 [facility] BrownwoodZehjmubOGFRTJOYNB1803-10-95 08:31:00 Test Item Value Reference Range Interpretation Comments WBC X 10x3 (test code = WBC X 10x3) 11.3 3.7-10.4 [facility] BrownwoodRficbdvBXZBZFOSVK0165-38-69 08:31:00 Test Item Value Reference Range Interpretation Comments Hgb (test code = Hgb) 10.8 14.0-18.0 [facility] BrownwoodPivwptlZDJRRVVPIR7897-82-36 08:31:00 Test Item Value Reference Range Interpretation Comments Lymphocytes (test code = Lymphocytes) 7.1 20.0-40.0 [facility] BrownwoodEceymzgQLPANCSUOF2847-45-36 08:31:00 Test Item Value Reference Range Interpretation Comments Monocytes (test code = Monocytes) 6.9 2.0-12.0 [facility] BrownwoodTzrihwyLLRWLKARZE4144-18-57 08:31:00 Test Item Value Reference Range Interpretation Comments Segs (test code = Segs) 85.9 45.0-75.0 [facility] BrownwoodIdwbsssPNXCYIOOPG8905-70-90 08:31:00 Test Item Value Reference Range Interpretation Comments Basophils (test code = 0.1 See_Comment [Aut omated message] The Basophils) system which ge nerated this result tra nsmitted reference range : <=1.0. The reference r noris was not used to int erpret this result as normal/abnormal . [facility] BrownwoodTkwhidpYANLATKIJL1153-03-45 08:31:00 Test Item Value Reference Range Interpretation Comments Monocytes # (test code 0.8 See_Comment [Aut omated message] The = Monocytes #) system which generated this result tra nsmitted reference range : <=0.8. The reference r noris was not used to int erpret this result as normal/abnormal . [facility] BrownwoodMvxzfskZIKAOLAMCU0685-49-88 08:31:00 Test Item Value Reference Range Interpretation Comments Segs-Bands # (test code = Segs-Bands #) 9.7 1.5-8.1 [facility] BrownwoodZeernnoWKVVXWIKXJ0374-35-64 08:31:00 Test Item Value Reference Range Interpretation Comments Lymphocytes # (test code = Lymphocytes 0.8 1.0-5.5 #) [facility] BrownwoodQtcecmkKTAQFCSIIZ3424-40-14 08:31:00 Test Item Value Reference Range Interpretation Comments Eosinophils (test code = 0.0 See_Comment [A utomated message] The Eosinophils) system which ge nerated this result tra nsmitted reference range : <=4.0. The reference r noris was not used to int erpret this result as normal/abnormal . [facility] BrownwoodEhnfzjxVJJGIMMOCK1800-82-40 08:31:00 Test Item Value Reference Range Interpretation Comments Basophils # (test code 0.0 See_Comment [Aut omated message] The = Basophils #) system which generated this result tra nsmitted reference range : <=0.2. The reference r noris was not used to int erpret this result as normal/abnormal . [facility] BrownwoodSjwqjagJUMQWPTCTD5985-42-66 08:31:00 Test Item Value Reference Range Interpretation Comments Eosinophils # (test code 0.0 See_Comment [A utomated message] The = Eosinophils #) system whic h generated this result tra nsmitted reference range : <=0.5. The reference r noris was not used to int erpret this result as normal/abnormal . [facility]GhtgtuqNLGNLALCPNLG0366-40-18 08:31:00 Test Item Value Reference Range Interpretation Comments AGAP (test code = AGAP) 12.2 10.0-20.0 [facility] HospitalRvjdzkbDUDQTYERDPDR1185-85-05 08:31:00 Test Item Value Reference Range Interpretation Comments eGFR (test code = eGFR) 89 [facility] HospitalVmmqkhhSDERJJOWNLEL8492-54-58 08:31:00 Test Item Value Reference Range Interpretation Comments CO2 (test code = CO2) 26 24-32 [facility] HospitalVxuunzvZGNMAWCQDWAF4742-67-98 08:31:00 Test Item Value Reference Range Interpretation Comments Calcium Lvl (test code = Calcium Lvl) 8.1 8.5-10.5 [facility] HospitalHgmxeljYNHTOSRMHSKU0993-87-61 08:31:00 Test Item Value Reference Range Interpretation Comments Chloride Lvl (test code = Chloride Lvl) 107 95-109 [facility]WsuscwfHWJNNSIYXSZX2793-82-27 08:31:00 Test Item Value Reference Range Interpretation Comments Sodium Lvl (test code = Sodium Lvl) 141 135-145 [facility]CiulnnwWCCQZVMMGYSJ3697-30-82 08:31:00 Test Item Value Reference Range Interpretation Comments Potassium Lvl (test code = Potassium 4.2 3.5-5.1 Lvl) [facility] HospitalNvtbfpcZOOOIWHDCWXO6831-91-66 08:31:00 Test Item Value Reference Range Interpretation Comments Creatinine Lvl (test code = Creatinine 0.84 0.50-1.40 Lvl) [facility] HospitalEbcgkeuKIUPBXIMOMXD2108-14-40 08:31:00 Test Item Value Reference Range Interpretation Comments Glucose Lvl (test code = Glucose Lvl) 124 70-99 [facility] HospitalVgvudyxPFQEQSMTPOLR7270-55-38 08:31:00 Test Item Value Reference Range Interpretation Comments BUN (test code = BUN) 9 7-22 [facility] BrownwoodEcdztckHPIFJKMDOA6331-58-46 08:31:00 Test Item Value Reference Range Interpretation Comments MCV (test code = MCV) 97.7 80.0-94.0 [facility] BrownwoodJusnaurIMAXCGXLYT8400-67-41 08:31:00 Test Item Value Reference Range Interpretation Comments Hct (test code = Hct) 33.9 42.0-54.0 [facility] BrownwoodSkduxvhVGASBQFWFT1603-29-50 08:31:00 Test Item Value Reference Range Interpretation Comments MCHC (test code = MCHC) 31.9 32.0-36.0 [facility] BrownwoodTldrdwhCDFFCGWNHD5285-39-86 08:31:00 Test Item Value Reference Range Interpretation Comments MCH (test code = MCH) 31.1 pg 27.0-31.0 [facility] BrownwoodKjtyxxaNQCOASFQPF0364-16-82 08:31:00 Test Item Value Reference Range Interpretation Comments RDW (test code = RDW) 14.3 11.5-14.5 [facility] BrownwoodOslwkgqULDWZOORCE7837-24-90 08:31:00 Test Item Value Reference Range Interpretation Comments Platelet (test code = Platelet) 166 133-450 [facility] BrownwoodPozkwhoENHVKCRTLQ0075-14-86 08:31:00 Test Item Value Reference Range Interpretation Comments MPV (test code = MPV) 11.4 7.4-10.4 [facility] BrownwoodWzsfbbtOOMNVMWUSC0713-25-34 08:31:00 Test Item Value Reference Range Interpretation Comments RBC X 10x6 (test code = RBC X 10x6) 3.47 4.70-6.10 [facility] BrownwoodNexapymJXTKLXJCID0436-10-73 08:31:00 Test Item Value Reference Range Interpretation Comments WBC X 10x3 (test code = WBC X 10x3) 11.3 3.7-10.4 [facility] BrownwoodIhsbxmoPZNBZQCUBN5724-58-52 08:31:00 Test Item Value Reference Range Interpretation Comments Hgb (test code = Hgb) 10.8 14.0-18.0 [facility] BrownwoodMnoakweTXCCNNZHRE6936-63-47 08:31:00 Test Item Value Reference Range Interpretation Comments Lymphocytes (test code = Lymphocytes) 7.1 20.0-40.0 [facility] BrownwoodEsqzsixZQWXYLEVUM2719-89-67 08:31:00 Test Item Value Reference Range Interpretation Comments Monocytes (test code = Monocytes) 6.9 2.0-12.0 [facility] BrownwoodJmfqednQRYVWSVMWC7664-49-07 08:31:00 Test Item Value Reference Range Interpretation Comments Segs (test code = Segs) 85.9 45.0-75.0 [facility] BrownwoodSpojoplOYLVPZDYSA8673-74-30 08:31:00 Test Item Value Reference Range Interpretation Comments Basophils (test code = 0.1 See_Comment [Aut omated message] The Basophils) system which ge nerated this result tra nsmitted reference range : <=1.0. The reference r noris was not used to int erpret this result as normal/abnormal . [facility] BrownwoodHhxcwraGAHHVIARPK4340-24-67 08:31:00 Test Item Value Reference Range Interpretation Comments Monocytes # (test code 0.8 See_Comment [Aut omated message] The = Monocytes #) system which generated this result tra nsmitted reference range : <=0.8. The reference r noris was not used to int erpret this result as normal/abnormal . [facility] BrownwoodIjnujhzVVSZCNTNAE9708-62-90 08:31:00 Test Item Value Reference Range Interpretation Comments Segs-Bands # (test code = Segs-Bands #) 9.7 1.5-8.1 [facility] BrownwoodPeffktzPVANQKPETZ0530-68-05 08:31:00 Test Item Value Reference Range Interpretation Comments Lymphocytes # (test code = Lymphocytes 0.8 1.0-5.5 #) [facility] BrownwoodPiyohvoTZMXCVTPRC3600-42-68 08:31:00 Test Item Value Reference Range Interpretation Comments Eosinophils (test code = 0.0 See_Comment [A utomated message] The Eosinophils) system which ge nerated this result tra nsmitted reference range : <=4.0. The reference r noris was not used to int erpret this result as normal/abnormal . [facility] BrownwoodFogbkxiMHBHZDMXLW9314-93-61 08:31:00 Test Item Value Reference Range Interpretation Comments Basophils # (test code 0.0 See_Comment [Aut omated message] The = Basophils #) system which generated this result tra nsmitted reference range : <=0.2. The reference r noris was not used to int erpret this result as normal/abnormal . [facility] BrownwoodHgseothBXXDSQMYIQ4142-86-38 08:31:00 Test Item Value Reference Range Interpretation Comments Eosinophils # (test code 0.0 See_Comment [A utomated message] The = Eosinophils #) system whic h generated this result tra nsmitted reference range : <=0.5. The reference r noris was not used to int erpret this result as normal/abnormal . [facility] BrownwoodBsatqcnBMOYOGJNWP5179-48-02 12:35:00 Test Item Value Reference Range Interpretation Comments INR (test code = INR) 0.99 0.85-1.17 [facility] BrownwoodJrdfmsuMVZTHICKKE4409-53-46 12:35:00 Test Item Value Reference Range Interpretation Comments PROTIME (test code = PROTIME) 13.4 s 12.0-14.7 [facility] BrownwoodKfvuwznOUKJUPJJHS9777-37-63 12:35:00 Test Item Value Reference Range Interpretation Comments aPTT (test code = aPTT) 34.1 s 22.9-35.8 [facility] BrownwoodDbsravcBHIFWJULTS2621-43-66 12:35:00 Test Item Value Reference Range Interpretation Comments INR (test code = INR) 0.99 0.85-1.17 [facility] BrownwoodBeabgblNHYOPJWPZF8906-65-43 12:35:00 Test Item Value Reference Range Interpretation Comments PROTIME (test code = PROTIME) 13.4 s 12.0-14.7 [facility] BrownwoodNuysbydDWNHEDJETF6028-96-24 12:35:00 Test Item Value Reference Range Interpretation Comments aPTT (test code = aPTT) 34.1 s 22.9-35.8 [facility] HFKYW5100-56-71 17:35:00 Test Item Value Reference Range Interpretation Comments Vitamin D, 25-OH, Total (test code = 41 30-100 Vitamin D, 25-OH, Total) [facility]Wis[facility] JCETY7927-34-67 17:35:00 Test Item Value Reference Range Interpretation Comments A/G Ratio (test code = A/G Ratio) 1.1 0.7-1.6 [facility]2016-08-09 17:35:00 Test Item Value Reference Range Interpretation Comments AGAP (test code = AGAP) 8.0 10.0-20.0 [facility]2016-08-09 17:35:00 Test Item Value Reference Range Interpretation Comments B/C Ratio (test code = B/C Ratio) 12 6-25 [facility]2016-08-09 17:35:00 Test Item Value Reference Range Interpretation Comments Globulin (test code = Globulin) 3.2 2.7-4.2 [facility]2016-08-09 17:35:00 Test Item Value Reference Range Interpretation Comments eGFR (test code = eGFR) 91 [facility]2016-08-09 17:35:00 Test Item Value Reference Range Interpretation Comments Alk Phos (test code = Alk Phos) 73 39-136 [facility]2016-08-09 17:35:00 Test Item Value Reference Range Interpretation Comments Bili Total (test code = Bili Total) 0.4 0.2-1.3 [place] 049936-08-09 17:35:00 Test Item Value Reference Range Interpretation Comments Calcium Lvl (test code = Calcium Lvl) 8.2 8.5-10.5 [facility]2016-08-09 17:35:00 Test Item Value Reference Range Interpretation Comments Total Protein (test code = Total 6.6 6.4-8.4 Protein) [facility]2016-08-09 17:35:00 Test Item Value Reference Range Interpretation Comments Creatinine Lvl (test code = Creatinine 0.80 0.50-1.40 Lvl) [facility]2016-08-09 17:35:00 Test Item Value Reference Range Interpretation Comments Albumin Lvl (test code = Albumin Lvl) 3.4 3.5-5.0 [facility]2016-08-09 17:35:00 Test Item Value Reference Range Interpretation Comments ALANINE AMINOTRANSFERASE 27 See_Comment [A utomated message] (test code = ALANINE The sys tem which AMINOTRANSFERASE) generated this result transmitted ref erence range: <=65. Th e reference range was not used to int erpret this result as normal/abnormal . [facility]2016-08-09 17:35:00 Test Item Value Reference Range Interpretation Comments ASPARTATE TRANSAMINASE 22 See_Comment [Aut omated message] (test code = ASPARTATE The s ystem which TRANSAMINASE) generated this result transmitted ref erence range: <=37. Th e reference range was not used to interpr et this result as normal/abnormal . [place] 049936-08-09 17:35:00 Test Item Value Reference Range Interpretation Comments Sodium Lvl (test code = Sodium Lvl) 140 135-145 [facility]2016-08-09 17:35:00 Test Item Value Reference Range Interpretation Comments Potassium Lvl (test code = Potassium 4.0 3.5-5.1 Lvl) [facility]2016-08-09 17:35:00 Test Item Value Reference Range Interpretation Comments Chloride Lvl (test code = Chloride Lvl) 105 95-109 [facility]2016-08-09 17:35:00 Test Item Value Reference Range Interpretation Comments CO2 (test code = CO2) 31 24-32 [facility]2016-08-09 17:35:00 Test Item Value Reference Range Interpretation Comments Glucose Lvl (test code = Glucose Lvl) 101 70-99 [facility]2016-08-09 17:35:00 Test Item Value Reference Range Interpretation Comments BUN (test code = BUN) 10 7-22 [facility] BrownwoodPhpcxrpEMJADXLRLA3626-29-53 17:35:00 Test Item Value Reference Range Interpretation Comments Basophils # (test code 0.0 See_Comment [Aut omated message] The = Basophils #) system which generated this result tra nsmitted reference range : <=0.2. The reference r noris was not used to int erpret this result as normal/abnormal . [facility] BrownwoodLqwwkpuQNXYOQAVAL2425-27-84 17:35:00 Test Item Value Reference Range Interpretation Comments Lymphocytes (test code = Lymphocytes) 24.0 20.0-40.0 [facility] BrownwoodRaplbwnOLDAYUNLLB7886-04-83 17:35:00 Test Item Value Reference Range Interpretation Comments Segs (test code = Segs) 62.0 45.0-75.0 [facility] BrownwoodSmknszbVVZVCWNIIM7413-96-36 17:35:00 Test Item Value Reference Range Interpretation Comments Monocytes (test code = Monocytes) 10.1 2.0-12.0 [facility] BrownwoodIpcydfzDVCJBLWTSD4023-98-66 17:35:00 Test Item Value Reference Range Interpretation Comments Eosinophils (test code = 3.7 See_Comment [A utomated message] The Eosinophils) system which ge nerated this result tra nsmitted reference range : <=4.0. The reference r noris was not used to int erpret this result as normal/abnormal . [facility] BrownwoodMvdjukaWNCZCOLXYT3471-18-73 17:35:00 Test Item Value Reference Range Interpretation Comments Basophils (test code = 0.2 See_Comment [Aut omated message] The Basophils) system which ge nerated this result tra nsmitted reference range : <=1.0. The reference r noris was not used to int erpret this result as normal/abnormal . [facility] BrownwoodRygctmiVGZPQJKHRM1449-87-08 17:35:00 Test Item Value Reference Range Interpretation Comments Monocytes # (test code 0.7 See_Comment [Aut omated message] The = Monocytes #) system which generated this result tra nsmitted reference range : <=0.8. The reference r noris was not used to int erpret this result as normal/abnormal . [facility] BrownwoodMqihuzwTIJWFSHLXM8340-97-45 17:35:00 Test Item Value Reference Range Interpretation Comments Eosinophils # (test code 0.2 See_Comment [A utomated message] The = Eosinophils #) system whic h generated this result tra nsmitted reference range : <=0.5. The reference r noris was not used to int erpret this result as normal/abnormal . [facility] BrownwoodMyvouxqBORXBCTQEF7813-72-76 17:35:00 Test Item Value Reference Range Interpretation Comments Segs-Bands # (test code = Segs-Bands #) 4.0 1.5-8.1 [facility] BrownwoodVzldvaaJOEAZAXMVT8091-46-69 17:35:00 Test Item Value Reference Range Interpretation Comments Lymphocytes # (test code = Lymphocytes 1.5 1.0-5.5 #) [facility] BrownwoodCaoziohFKLCYBSEVN2857-43-47 17:35:00 Test Item Value Reference Range Interpretation Comments PROTIME (test code = PROTIME) 31.0 s 12.0-14.7 [facility] BrownwoodKpgictoTQECXWMONA6111-78-46 17:35:00 Test Item Value Reference Range Interpretation Comments INR (test code = INR) 2.95 0.85-1.17 [facility] BrownwoodUnrhbgnRTRKASVBSH3632-91-73 17:35:00 Test Item Value Reference Range Interpretation Comments aPTT (test code = aPTT) 43.0 s 22.9-35.8 [facility] BrownwoodZvqduwoTCIIZHFSMA7298-77-95 17:35:00 Test Item Value Reference Range Interpretation Comments RDW (test code = RDW) 14.5 11.5-14.5 [facility] BrownwoodUgwxqzgIAVBYNEPCI2004-18-68 17:35:00 Test Item Value Reference Range Interpretation Comments Platelet (test code = Platelet) 196 133-450 [facility] BrownwoodTqvgaunLJDLEONAQY1371-69-44 17:35:00 Test Item Value Reference Range Interpretation Comments MPV (test code = MPV) 11.4 7.4-10.4 [facility] BrownwoodXarofllIHIQVHZYTO3847-77-98 17:35:00 Test Item Value Reference Range Interpretation Comments MCHC (test code = MCHC) 32.1 32.0-36.0 [facility] BrownwoodTeilatzFEQMIFQFPB6597-67-06 17:35:00 Test Item Value Reference Range Interpretation Comments MCH (test code = MCH) 30.9 pg 27.0-31.0 [facility] BrownwoodIjunlcuASRCKKBWSZ6772-28-50 17:35:00 Test Item Value Reference Range Interpretation Comments WBC X 10x3 (test code = WBC X 10x3) 6.4 3.7-10.4 [facility] BrownwoodArfnuhbFXLDZJBXAV1062-29-88 17:35:00 Test Item Value Reference Range Interpretation Comments Hgb (test code = Hgb) 13.4 14.0-18.0 [facility] BrownwoodXaslrmkXSHTQXIJUL3730-42-25 17:35:00 Test Item Value Reference Range Interpretation Comments RBC X 10x6 (test code = RBC X 10x6) 4.34 4.70-6.10 [facility] BrownwoodEuuxodlFNHTKCBOMU2828-49-81 17:35:00 Test Item Value Reference Range Interpretation Comments Hct (test code = Hct) 41.8 42.0-54.0 [facility] BrownwoodOzhoozeAKLBCNLAAP6498-89-56 17:35:00 Test Item Value Reference Range Interpretation Comments MCV (test code = MCV) 96.3 80.0-94.0 [facility]2016-08-09 17:35:00 Test Item Value Reference Range Interpretation Comments Vitamin D, 25-OH, Total (test code = 41 30-100 Vitamin D, 25-OH, Total) [facility]2016-08-09 17:35:00 Test Item Value Reference Range Interpretation Comments A/G Ratio (test code = A/G Ratio) 1.1 0.7-1.6 [place] 049936-08-09 17:35:00 Test Item Value Reference Range Interpretation Comments AGAP (test code = AGAP) 8.0 10.0-20.0 [facility]2016-08-09 17:35:00 Test Item Value Reference Range Interpretation Comments B/C Ratio (test code = B/C Ratio) 12 6-25 [place] 049936-08-09 17:35:00 Test Item Value Reference Range Interpretation Comments Globulin (test code = Globulin) 3.2 2.7-4.2 [place] 049936-08-09 17:35:00 Test Item Value Reference Range Interpretation Comments eGFR (test code = eGFR) 91 [facility]2016-08-09 17:35:00 Test Item Value Reference Range Interpretation Comments Alk Phos (test code = Alk Phos) 73 39-136 [facility]2016-08-09 17:35:00 Test Item Value Reference Range Interpretation Comments Bili Total (test code = Bili Total) 0.4 0.2-1.3 [facility]2016-08-09 17:35:00 Test Item Value Reference Range Interpretation Comments Calcium Lvl (test code = Calcium Lvl) 8.2 8.5-10.5 [facility]2016-08-09 17:35:00 Test Item Value Reference Range Interpretation Comments Total Protein (test code = Total 6.6 6.4-8.4 Protein) [facility]2016-08-09 17:35:00 Test Item Value Reference Range Interpretation Comments Creatinine Lvl (test code = Creatinine 0.80 0.50-1.40 Lvl) [facility]2016-08-09 17:35:00 Test Item Value Reference Range Interpretation Comments Albumin Lvl (test code = Albumin Lvl) 3.4 3.5-5.0 [facility]2016-08-09 17:35:00 Test Item Value Reference Range Interpretation Comments ALANINE AMINOTRANSFERASE 27 See_Comment [A utomated message] (test code = ALANINE The sys tem which AMINOTRANSFERASE) generated this result transmitted ref erence range: <=65. Th e reference range was not used to int erpret this result as normal/abnormal . [facility]2016-08-09 17:35:00 Test Item Value Reference Range Interpretation Comments ASPARTATE TRANSAMINASE 22 See_Comment [Aut omated message] (test code = ASPARTATE The s ystem which TRANSAMINASE) generated this result transmitted ref erence range: <=37. Th e reference range was not used to interpr et this result as normal/abnormal . [facility]2016-08-09 17:35:00 Test Item Value Reference Range Interpretation Comments Sodium Lvl (test code = Sodium Lvl) 140 135-145 [facility]2016-08-09 17:35:00 Test Item Value Reference Range Interpretation Comments Potassium Lvl (test code = Potassium 4.0 3.5-5.1 Lvl) [facility]2016-08-09 17:35:00 Test Item Value Reference Range Interpretation Comments Chloride Lvl (test code = Chloride Lvl) 105 95-109 [facility]2016-08-09 17:35:00 Test Item Value Reference Range Interpretation Comments CO2 (test code = CO2) 31 24-32 [facility]2016-08-09 17:35:00 Test Item Value Reference Range Interpretation Comments Glucose Lvl (test code = Glucose Lvl) 101 70-99 [facility]2016-08-09 17:35:00 Test Item Value Reference Range Interpretation Comments BUN (test code = BUN) 10 7-22 [facility]FjqityaQWFOBJPITG8664-70-31 17:35:00 Test Item Value Reference Range Interpretation Comments Basophils # (test code 0.0 See_Comment [Aut omated message] The = Basophils #) system which generated this result tra nsmitted reference range : <=0.2. The reference r noris was not used to int erpret this result as normal/abnormal . [facility]woodKufrwoyEHIZAWPCNV7637-32-68 17:35:00 Test Item Value Reference Range Interpretation Comments Lymphocytes (test code = Lymphocytes) 24.0 20.0-40.0 [facility]woodOxkmiuyVCHQDWVZCU0222-36-91 17:35:00 Test Item Value Reference Range Interpretation Comments Segs (test code = Segs) 62.0 45.0-75.0 [facility]woodGklsgprLJGZPBYDRK4557-17-05 17:35:00 Test Item Value Reference Range Interpretation Comments Monocytes (test code = Monocytes) 10.1 2.0-12.0 [facility]woodLwxxbgdJBDWRVYSXK0197-95-81 17:35:00 Test Item Value Reference Range Interpretation Comments Eosinophils (test code = 3.7 See_Comment [A utomated message] The Eosinophils) system which ge nerated this result tra nsmitted reference range : <=4.0. The reference r noris was not used to int erpret this result as normal/abnormal . [facility]woodDolbgezIANUGGJGNZ9407-79-67 17:35:00 Test Item Value Reference Range Interpretation Comments Basophils (test code = 0.2 See_Comment [Aut omated message] The Basophils) system which ge nerated this result tra nsmitted reference range : <=1.0. The reference r noris was not used to int erpret this result as normal/abnormal . [facility]woodPbbvvjyKDZKYAJMKO0769-42-04 17:35:00 Test Item Value Reference Range Interpretation Comments Monocytes # (test code 0.7 See_Comment [Aut omated message] The = Monocytes #) system which generated this result tra nsmitted reference range : <=0.8. The reference r noris was not used to int erpret this result as normal/abnormal . [facility]woodIatgkmqDBMYAIREBH6593-04-98 17:35:00 Test Item Value Reference Range Interpretation Comments Eosinophils # (test code 0.2 See_Comment [A utomated message] The = Eosinophils #) system [facility] h generated this result tra nsmitted reference range : <=0.5. The reference r noris was not used to int erpret this result as normal/abnormal . [facility]woodMxbunyfGGTSPULZFW0709-08-34 17:35:00 Test Item Value Reference Range Interpretation Comments Segs-Bands # (test code = Segs-Bands #) 4.0 1.5-8.1 [facility]woodSwlsdwpDKLFTOSWGA5400-36-37 17:35:00 Test Item Value Reference Range Interpretation Comments Lymphocytes # (test code = Lymphocytes 1.5 1.0-5.5 #) [facility] BrownwoodFlctmivGZLKTFUBSM8560-96-51 17:35:00 Test Item Value Reference Range Interpretation Comments PROTIME (test code = PROTIME) 31.0 s 12.0-14.7 [facility] BrownwoodBihrgntLODMONZCEW1737-93-07 17:35:00 Test Item Value Reference Range Interpretation Comments INR (test code = INR) 2.95 0.85-1.17 [facility] BrownwoodJsmkinbHYTVDGBMHF1598-11-15 17:35:00 Test Item Value Reference Range Interpretation Comments aPTT (test code = aPTT) 43.0 s 22.9-35.8 [facility] BrownwoodYeypdoaSTCFXPNGPN4183-85-81 17:35:00 Test Item Value Reference Range Interpretation Comments RDW (test code = RDW) 14.5 11.5-14.5 [facility] BrownwoodAoiofypYZLQTWVPLM9485-23-07 17:35:00 Test Item Value Reference Range Interpretation Comments Platelet (test code = Platelet) 196 133-450 [facility] BrownwoodSltknkgXPJAJOILRK3075-81-18 17:35:00 Test Item Value Reference Range Interpretation Comments MPV (test code = MPV) 11.4 7.4-10.4 [facility] BrownwoodOablcxvXDIPWSELNQ6024-30-63 17:35:00 Test Item Value Reference Range Interpretation Comments MCHC (test code = MCHC) 32.1 32.0-36.0 [facility] BrownwoodRythljxMVCHKYETEW4010-45-74 17:35:00 Test Item Value Reference Range Interpretation Comments MCH (test code = MCH) 30.9 pg 27.0-31.0 [facility] BrownwoodLwmnbkvBIMRGBJRYI2851-63-53 17:35:00 Test Item Value Reference Range Interpretation Comments WBC X 10x3 (test code = WBC X 10x3) 6.4 3.7-10.4 [facility] BrownwoodKaedeatCUYULMXXQU9696-88-07 17:35:00 Test Item Value Reference Range Interpretation Comments Hgb (test code = Hgb) 13.4 14.0-18.0 [facility]woodDqgkfcmQMEFTVKIIN9488-23-69 17:35:00 Test Item Value Reference Range Interpretation Comments RBC X 10x6 (test code = RBC X 10x6) 4.34 4.70-6.10 [facility] BrownwoodWhjmzhsFGEKCMLUAT6887-98-39 17:35:00 Test Item Value Reference Range Interpretation Comments Hct (test code = Hct) 41.8 42.0-54.0 [facility] BrownwoodTfugmqeSIBYHWTUJS2348-25-47 17:35:00 Test Item Value Reference Range Interpretation Comments MCV (test code = MCV) 96.3 80.0-94.0 [facility] Chest W Con [facility] PRAMOD [facility]ANCHE[facility] : 1945 Sex: M Pt Name: PRAMOD SANCHEZ [address] Phys: [place] [address] : 1945 Age: 75 SEX:M [phone] Exam Date: 07/07/20 Status: REG CLI Acct: [id number] Loc: BICCT Pt Unit #: [id number] Report #: [id number] CC: Jose Otoole MD CAT SCAN REPORT Order # Category/Exam [id number] CT/CT Chest W Con ([id number]): . Results CT chest with IV contrast HISTORY: Dyspnea. COMPARISON: 01/27/2020. FINDINGS: Lungs are slightly hyperinflated with scattered emphysematouschange. Parenchymal scarring surrounding a bulla at the posterior aspect of the superior segment right lower lobe is stable. Calcified granulomata of the chest and abdomen are consistent with healed granulomatous disease. There is calcification within the coronary arteries and other arterial structures. Noncalcified plaque at the left subclavian artery results in a short segment focus of stenosis greater than 50%. No enlarged lymph nodes are apparent within the mediastinum. No pleural fluid or pneumothorax. Degenerative changes of the lumbar spine. Postoperative changes of the right shoulder. Electronic monitoring device at the left anterior chest wall is again demonstrated. IMPRESSION : Mild emphysematous changes. Stable exam. No acute process is apparent. Atherosclerosis. Stenosis of the left subclavian artery. Reported By: Kayleigh Mobley MD Electronically Signed Date/Time: 07/07/20 1600 Technologist: SARA Dictated Date/Time: 07/07/20 1550 Transcribed Date/Time:
--- NOTE | 2022-06-03 11:39 | RAD REPORT ---
EXAM DESCRIPTION: Ace Single View06/03/2022 11:04 am CLINICAL HISTORY: Chest pain COMPARISON: none FINDINGS: The lungs appear clear of acute infiltrate. The heart is normal size conveyor monitor in place IMPRESSION: No acute abnormalities displayed
--- NOTE | 2022-06-03 11:39 | RAD REPORT ---
EXAM DESCRIPTION: CT - Head C Spine Mpr Wo Con - 06/03/2022 11:12 am CLINICAL HISTORY: Head and neck injury status post fall. Head and neck pain COMPARISON: None. TECHNIQUE: Computed axial tomography of the head and cervical spine was obtained. Sagittal and coronal reconstruction was performed. All CT scans are performed using dose optimization technique as appropriate and may include automated exposure control or mA/KV adjustment according to patient size. FINDINGS: An intracranial bleed is not seen. The ventricles are normal in caliber. Small low-density area right basal ganglia has the appearance of an old lacunar infarction. Moderate low-density periventricular deep white matter probably ischemic changes secondary to small vessel dis ease An extra-axial fluid collection is not noted.Fluid within the visualized sinuses and mastoids is not seen A cervical fracture is not visualized. No dislocation is noted. Spondylosis mid and distal cervical s pine. Loss of the normal lordosis may be secondary muscle spasm. IMPRESSION: No acute intracranial abnormality is seen. A cervical fracture is not visualized. If the patient continues to have symptoms to suggest intracra nial /spinal cord pathology then MRI would be recommended
--- NOTE | 2022-06-03 11:42 | RAD REPORT ---
EXAM DESCRIPTION: RAD - Elbow Right 3 View - 06/03/2022 11:04 am CLINICAL HISTORY: Elbow pain FINDINGS: Soft tissue laceration Mild cortical irregularity involves radial head. There does not appear to be a joint effusion so this probably is not significant. If the patient continues to have symptoms to suggest an occult fracture then follow up x-ray in 1 wee k would be recommended No dislocation
--- NOTE | 2022-06-03 11:44 | RAD REPORT ---
EXAM DESCRIPTION: RAD - Forearm Right - 06/03/2022 11:04 am CLINICAL HISTORY: Right arm pain FINDINGS: No fracture is seen. Soft tissue laceration with edema
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
[2022-06-03] MEDS ORDERED: Levofloxacin 750mg IV 750 MG/150 ML BAG IV ONE (12:37)
[2022-06-03] MEDS ORDERED: CEFAZOLIN SODIUM 1 GM/VIAL ONE (12:37)
[2022-06-03] MEDS ORDERED: NA CHLORIDE 0.9% 0 ML IV ONE (12:38)
[2022-06-03] MEDS ORDERED: SODIUM HYPOCHLORITE 0.25% 473 ML ONE (13:10)
[2022-06-03] MEDS ORDERED: LIDOCAINE 1% W/EPI 1:100,000 30 ML VIAL ONE (13:11)
[2022-06-03] MEDS ORDERED: FENTANYL CITR 100 MCG/2 ML ONE (13:13)
[2022-06-03] MEDS ORDERED: MIDAZOLAM HCL 2 MG/2 ML INJ ONE (13:13)
[2022-06-03] MEDS ORDERED: propofoL 200 MG/20 ML VIAL IV ONE (13:13)
[2022-06-03] MEDS ORDERED: ONDANSETRON 4 MG/2 ML VIAL ONE (13:14)
[2022-06-03] MEDS ORDERED: LIDOCAINE 2% MPF 5 ML VIAL ONE (13:14)
[2022-06-03] MEDS ORDERED: dexAMETHasone 4 MG/ML VIAL ONE (13:14)
[2022-06-03] MEDS ORDERED: KETOROLAC 30 MG/ML INJ ONE (13:14)
[2022-06-03] MEDS ORDERED: Ringers Lactate 1,000 ML IV ONE (13:19)
[2022-06-03 13:31] LABS: SARS-CoV-2 Antigen Rapid Res Negative (Negative)
[2022-06-03] MEDS ORDERED: ACETAMINOPHEN 500 MG TAB PO PRN (13:35)
[2022-06-03] MEDS ORDERED: ONDANSETRON 4 MG/2 ML VIAL IV PRN (13:35)
[2022-06-03] MEDS ORDERED: MORPHINE 2 MG/ML SYR IV PRN (13:35)
[2022-06-03] MEDS ORDERED: NA CHLORIDE 0.9% 1,000 ML IV SCH (14:00)
[2022-06-03 14:28] LABS: Potassium 5.2 mmol/L (3.5-5.1)
--- NOTE | 2022-06-03 14:32 | P.OP ---
Preoperative diagnosis: RIGHT forearm traumatic avulsion injury Postoperative diagnosis: RIGHT forearm traumatic avulsion injury Primary procedure: Washout RIGHT forearm Avulsion Injury Secondary procedure: Debridement and Repair of RIGHT Forearm Injury Anesthesia: GETA + Local Estimated blood loss: <20c Specimen: debridement tissue Findings: ~ 10cm x 7cm down into muscle avulsion injury of RIGHT dorsal forearm Complications: None Transferred to: Recovery Room Condition: Good
[2022-06-03] MEDS ORDERED: HYDROCODONE/APAP 5/325 MG TAB ONE (15:18)
[2022-06-03 15:21] VITALS: O2SAT 98
--- NOTE | 2022-06-03 15:29 | OP ---
Date of Procedure: 06/03/2022 Surgeon: Tierra Teague MD, Preoperative Diagnosis: Right dorsal forearm traumatic avulsion injury. Postoperative Diagnosis: Right dorsal forearm traumatic avulsion injury. Procedures Performed: 1.Washout of right dorsal forearm avulsion injury. 2.Debridement and primary repair of right dorsal forearm injury. Anesthesia: General endotracheal plus local with 1% lidocaine with epinephrine. Estimated Blood Loss: 20 cc. Specimen: Debridement tissue. Findings: Approximately 10 cm long by 7 cm wide avulsion injury extending down to the muscular dorsa l extensor compartment muscles with devascularization of skin and subcutaneous fat. Complications: None immediate. Disposition: Patient was transferred to recovery room in good condition. Procedure In Detail: After informed consent was obtained, patient was brought to the operating room, prepped and draped in the usual sterile fashion. After adequate anesthesia was achieved, I injected additional 1% lidocaine with epinephrine circumferentially around the avulsion injury to the right f orearm as described above. I then used the pulse lavage device to clear and cleanse the injury in it s entirety with approximately 1 L of sterile saline. At this point, I trimmed off all nonviable isch emic skin edges and fat tissue and sent it as a debridement tissue analysis. At this point, I had no tierra that there were exposed nerves on the dorsal aspect of the extensor compartment and these appeare d to have some extension to the skin, some of which were violated. There was diffuse bleeding from a ll cut surfaces as the patient has a history of being on aspirin and Xarelto. Hemostasis was achieve d with a combination of minimal electrocautery sparing away from areas of nerve involvement as well a s 3-0 Vicryl sutures for simple interrupted and [id number]-[id number] sutures with good hemostasis. At thi s point, the area was copiously irrigated once again. I inspected the compartments and removed any n onviable tissue using meticulous dissection in the extensor musculature, but it was superficial at th is area with fascial tears through the extensor compartment. At this point, the area was copiously i rrigated once again with a pulse lavage device and I partially closed the distal aspect of the avulsi on injury. After complete cleansing, hemostasis was achieved using a combination of simple interrupt ed and horizontal mattress sutures reapproximating approximately 50% of the wound. The remainder of the wound had a lack of skin therefore precluding a safe closure and therefore I used a Dakin soaked Kerlix to pack the wound both undermining the area of involvement as well as on the surface and the e ntire arm was wrapped with a sterile dressing. At this point, patient tolerated the procedure well w ithout evidence of complication. Transferred to PACU in good condition. All counts were correct at the end of the case. ZAID/EMMANUEL Voice ID: [id number] Report ID: [id number]
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
[2022-06-03 16:10] VITALS: BP 125/63; TEMP 97.3
== END 2022-06-03 15:49 | disposition home or self-care (01) ==
LOC: ER 10:13 → ERHOLD 13:33
PROVIDERS: ADMIT Surgery; ATTEND Surgery
PROC: 0JDD0ZZ Extraction of Right Upper Arm Subcutaneous Tissue and Fascia, Open Approach (ICD-10-PCS; 2022-06-03)
PROC: 0JQG0ZZ Repair Right Lower Arm Subcutaneous Tissue and Fascia, Open Approach (ICD-10-PCS; principal; 2022-06-03 13:30)
DX: S51.811A Laceration without foreign body of right forearm, initial encounter (principal); W17.89XA Other fall from one level to another, initial encounter; Y93.89 Activity, other specified; Y92.89 Other specified places as the place of occurrence of the external cause; I10 Essential (primary) hypertension; I48.91 Unspecified atrial fibrillation; J44.9 Chronic obstructive pulmonary disease, unspecified; M19.90 Unspecified osteoarthritis, unspecified site; M10.9 Gout, unspecified; G62.9 Polyneuropathy, unspecified; Z20.822 Contact with and (suspected) exposure to COVID-19
CPT/HCPCS: 12004; 11042; 96365; 80048; 36415; 88304; 70450; 72125; 71045; 73080; 73090; 96375; 99285; 87811; J2704; J1100; J2001; J2250; J3010; G0378; J7120; J2405; J0690; 88302